=== PATIENT | male | born 1955 | race Caucasian/White ===

== ENCOUNTER → 2016-02-24 | Outpatient (CLI) | payer BC ==
[~2016-02-24] MED LIST: ACCUNEB 0.1.25 MG/1 INH; ALBUTEROL0.09 MG/A2 INH; AUGMENTIN XR 101 TE1 PO; AVPAK AZITHROM250 M1 PO; CLARITIN10 MG PO; COMBIVENT1 ARO IH; DUONEB 3 MG/3 ML3 M1 NEB; Duoneb 3ML 3 MG/3 ML INH; FISH OIL 10001000 MG PO; LISINOPRIL/HYDR1 TA1 PO; MEDROL DOSEPAK4 MG PO; NICODERM C14 MG/241 T; PREDNISONE10 MG PO; PRILOSEC20 MG PO; VENTOLIN H0.09 MG/AC INH; ZESTRIL20 MG PO; ZITHROMAX Z PA250 MG PO; [UNRECOGNIZED DRUG - OTHER] PO
== END | disposition home or self-care (01) ==
LOC: RAD 17:16
DX: J44.9 Chronic obstructive pulmonary disease, unspecified (principal); R50.9 Fever, unspecified; R05 Cough; J98.4 Other disorders of lung

== ENCOUNTER 2016-07-14 08:23 | Inpatient (IN) | payer BC ==
[~2016-07-14] VITALS: Ht 172.7 cm; Wt 91.3 kg
[2016-07-14 08:28] VITALS: BP 190/110
[2016-07-14] MEDS ORDERED: LEVOFLOXACIN500 MG PO (08:33)
[2016-07-14] MEDS ORDERED: PREDNISONE20 M1 PO (08:33)
[2016-07-14] MEDS ORDERED: SYMBICORT1 AE1 INH (08:34)
[2016-07-14] MEDS ORDERED: AMLODIPINE BES2.5 MG PO (08:34)
[2016-07-14 08:52] LABS: BASO % 0.2 % (0.0-1.0); EOS % 0.2 % (1.0-4.0); HEMATOCRIT 39.3 % (42.0-52.0); HEMOGLOBIN 13.4 g/dl (14.0-18.0); IG # 0.1 10*3/uL (0.0-0.1); LYMPH # 1.1 10*3/uL (1.3-4.4); MEAN CELL VOLUME 101.3 fl (80.0-94.0); MEAN CORPUSCULAR HGB 34.5 pg (27.0-31.0); MEAN CORPUSCULAR HGB CONC 34.1 g/dl (33.0-37.0); MEAN PLATELET VOLUME 8.7 fl (9.6-12.3); MONO # 0.6 10*3/uL (0.1-1.0); MONO % 10.8 % (3.0-9.0); NEUT # 4.1 10*3/uL (2.3-7.9); NEUT % 69.9 % (47.0-73.0); PLATELET COUNT AUTOMATED 199 10*3/uL (130-400); RED BLOOD COUNT 3.88 10*6/uL (4.50-5.90); RED CELL DISTRI WIDTH 13.4 % (0-14.5); WHITE BLOOD COUNT 5.8 10*3/uL (4.8-10.8)
[2016-07-14 09:00] LABS: INTERNATIONAL NORM RATIO 0.9 (2.0-3.5); PROTHROMBIN TIME 9.4 SECONDS (9.0-12.4)
[2016-07-14 09:07] LABS: ALBUMIN 3.3 gm/dl (3.1-4.5); ALKALINE PHOSPHATASE 54 U/L (45-117); BILIRUBIN, TOTAL 0.3 mg/dl (0.2-1.0); BUN 17 mg/dl (7-24); CARBON DIOXIDE 30 mmol/L (21-32); CHLORIDE 101 mmol/L (98-107); CKMB 4.1 ng/ml (0.5-3.6); CPK 185 U/L (39-308); EST GLOM FILT AFRICAN AMERICAN > 60 ml/min; GLUCOSE 116 mg/dL (65-99); MAGNESIUM 1.7 mg/dL (1.5-2.1); POTASSIUM 3.8 mmol/L (3.5-5.1); SGOT/AST 77 IU/L (3-35); SGPT/ALT 86 U/L (12-78); SODIUM 139 mmol/L (136-145); TOTAL PROTEIN 6.9 gm/dL (6.4-8.2)
[2016-07-14 09:08] LABS: TROPONIN I < 0.015 ng/ml (<0.045)
[2016-07-14 11:25] VITALS: BP 180/98
[2016-07-14 12:00] VITALS: BP 134/84
[2016-07-14 16:00] VITALS: BP 163/97
[2016-07-14 20:00] VITALS: BP 172/88
[2016-07-14 22:00] VITALS: BP 172/88
[2016-07-15] VITALS (7 sets, daily range): BP systolic 152–180; BP diastolic 82–104
[2016-07-15 07:27] LABS: BASO % 0.2 % (0.0-1.0); HEMATOCRIT 36.8 % (42.0-52.0); HEMOGLOBIN 12.5 g/dl (14.0-18.0); LYMPH # 0.6 10*3/uL (1.3-4.4); LYMPH % 8.8 % (27.0-41.0); MEAN CELL VOLUME 101.7 fl (80.0-94.0); MEAN CORPUSCULAR HGB 34.5 pg (27.0-31.0); MEAN PLATELET VOLUME 8.9 fl (9.6-12.3); MONO # 0.3 10*3/uL (0.1-1.0); MONO % 4.8 % (3.0-9.0); NEUT # 5.5 10*3/uL (2.3-7.9); NEUT % 85.6 % (47.0-73.0); PLATELET COUNT AUTOMATED 203 10*3/uL (130-400); RED BLOOD COUNT 3.62 10*6/uL (4.50-5.90); RED CELL DISTRI WIDTH 13.2 % (0-14.5); WHITE BLOOD COUNT 6.5 10*3/uL (4.8-10.8)
[2016-07-15 07:55] LABS: ALBUMIN 2.9 gm/dl (3.1-4.5); ALKALINE PHOSPHATASE 48 U/L (45-117); BILIRUBIN, TOTAL 0.3 mg/dl (0.2-1.0); BUN 14 mg/dl (7-24); CARBON DIOXIDE 32 mmol/L (21-32); CHLORIDE 102 mmol/L (98-107); CHOLESTEROL 187 mg/dL (<200); EST GLOM FILT AFRICAN AMERICAN > 60 ml/min; FREE T4 0.86 ng/dl (0.76-1.46); GLUCOSE 162 mg/dL (65-99); SGOT/AST 41 IU/L (3-35); SGPT/ALT 73 U/L (12-78); SODIUM 140 mmol/L (136-145); TOTAL PROTEIN 6.3 gm/dL (6.4-8.2); TRIGLYCERIDES 48 mg/dl (<150); VLDL CHOLESTEROL 10 mg/dL (6-40)
[2016-07-15 08:04] LABS: HEMOGLOBIN A1c 5.8 % (4.8-5.6)
[2016-07-15 08:05] LABS: HDL CHOLESTEROL 150 mg/dl (40-60); LDL CHOLESTEROL 27 mg/dL (9-159); THYROID STIM HORMONE (HS) 0.266 uIU/ml (0.358-4.75)
[2016-07-15 08:42] LABS: VITAMIN D, 25-HYDROXY 28.1 ng/mL (30-100)
[2016-07-15 08:43] LABS: FOLIC ACID 10.36 ng/mL (>5.38)
[2016-07-16] VITALS (8 sets, daily range): BP systolic 140–162; BP diastolic 70–98
[2016-07-16 06:00] LABS: ALBUMIN 2.9 gm/dl (3.1-4.5); ALKALINE PHOSPHATASE 47 U/L (45-117); BILIRUBIN, TOTAL 0.3 mg/dl (0.2-1.0); BUN 16 mg/dl (7-24); CARBON DIOXIDE 33 mmol/L (21-32); CHLORIDE 100 mmol/L (98-107); EST GLOM FILT AFRICAN AMERICAN > 60 ml/min; GLUCOSE 127 mg/dL (65-99); HEMATOCRIT 36.4 % (42.0-52.0); HEMOGLOBIN 12.1 g/dl (14.0-18.0); IG # 0.1 10*3/uL (0.0-0.1); LYMPH # 1.1 10*3/uL (1.3-4.4); LYMPH % 13.3 % (27.0-41.0); MEAN CELL VOLUME 101.7 fl (80.0-94.0); MEAN CORPUSCULAR HGB 33.8 pg (27.0-31.0); MEAN CORPUSCULAR HGB CONC 33.2 g/dl (33.0-37.0); MEAN PLATELET VOLUME 9.2 fl (9.6-12.3); MONO # 0.6 10*3/uL (0.1-1.0); MONO % 7.6 % (3.0-9.0); NEUT # 6.4 10*3/uL (2.3-7.9); NEUT % 78.2 % (47.0-73.0); PLATELET COUNT AUTOMATED 219 10*3/uL (130-400); POTASSIUM 3.6 mmol/L (3.5-5.1); RED BLOOD COUNT 3.58 10*6/uL (4.50-5.90); RED CELL DISTRI WIDTH 13.2 % (0-14.5); SGOT/AST 32 IU/L (3-35); SGPT/ALT 65 U/L (12-78); SODIUM 140 mmol/L (136-145); WHITE BLOOD COUNT 8.1 10*3/uL (4.8-10.8)
[2016-07-17] VITALS: BP 150/80
[2016-07-17 08:00] VITALS: BP 148/86
[2016-07-17] MEDS ORDERED: PREDNISONE10 MG PO (09:49)
[2016-07-17] MEDS ORDERED: D-1000 185 MG-11 TAB PO (09:49)
[2016-07-17] MEDS ORDERED: HYDROCHLOROTH12.5 M2 PO (09:49)
[2016-07-17 12:00] VITALS: BP 148/90
== END 2016-07-17 12:45 | disposition home or self-care (01) | DRG 871 ==
LOC: ED 08:23 → EDHOLD 09:46 → 4E 10:10
PROVIDERS: Emergency Medicine; Internal Medicine Hospice and Palliative Medicine
DX: A41.9 Sepsis, unspecified organism (principal); J18.9 Pneumonia, unspecified organism; K76.0 Fatty (change of) liver, not elsewhere classified; J44.1 Chronic obstructive pulmonary disease with (acute) exacerbation; J44.0 Chronic obstructive pulmonary disease with (acute) lower respiratory infection; E44.1 Mild protein-calorie malnutrition; I16.0 Hypertensive urgency; Z96.641 Presence of right artificial hip joint; K21.9 Gastro-esophageal reflux disease without esophagitis; F17.200 Nicotine dependence, unspecified, uncomplicated; D72.810 Lymphocytopenia; D64.9 Anemia, unspecified; R73.9 Hyperglycemia, unspecified; R74.0 Nonspecific elevation of levels of transaminase and lactic acid dehydrogenase [LDH]; E66.09 Other obesity due to excess calories; E55.9 Vitamin D deficiency, unspecified; J30.2 Other seasonal allergic rhinitis; Z83.6 Family history of other diseases of the respiratory system; Z87.01 Personal history of pneumonia (recurrent); Z71.6 Tobacco abuse counseling; Z83.3 Family history of diabetes mellitus; Z80.9 Family history of malignant neoplasm, unspecified; Z91.018 Allergy to other foods; Z68.29 Body mass index [BMI] 29.0-29.9, adult

== ENCOUNTER → 2017-09-09 | Outpatient (CLI) | payer BC ==
[~2017-09-09] MED LIST changes: +AMLODIPINE BES2.5 MG PO; +D-1000 185 MG-11 TAB PO; +HYDROCHLOROTH12.5 M2 PO; +LEVOFLOXACIN500 MG PO; +PREDNISONE20 M1 PO; +SYMBICORT1 AE1 INH
[2017-09-09 07:44] LABS: HEMATOCRIT 35.6 % (42.0-52.0); HEMOGLOBIN 12.1 g/dl (14.0-18.0); MEAN CELL VOLUME 111.9 fl (80.0-94.0); MEAN CORPUSCULAR HGB 38.1 pg (27.0-31.0); MEAN PLATELET VOLUME 8.8 fl (9.6-12.3); RED BLOOD COUNT 3.18 10*6/uL (4.50-5.90); RED CELL DISTRI WIDTH 13.3 % (0-14.5); WHITE BLOOD COUNT 5.7 10*3/uL (4.8-10.8)
[2017-09-09 08:05] LABS: ALBUMIN 3.4 gm/dl (3.1-4.5); BUN 17 mg/dl (7-24); CHLORIDE 103 mmol/L (98-107); CHOLESTEROL 194 mg/dL (<200); CREATININE 1.08 mg/dL (0.70-1.30); POTASSIUM 4.4 mmol/L (3.5-5.1); SGOT/AST 82 IU/L (3-35); SGPT/ALT 67 U/L (12-78); SODIUM 139 mmol/L (136-145); TRIGLYCERIDES 65 mg/dl (<150); VLDL CHOLESTEROL 13 mg/dL (6-40)
[2017-09-09 08:09] LABS: ALKALINE PHOSPHATASE 65 U/L (45-117); HDL CHOLESTEROL 118 mg/dl (40-60); LDL CHOLESTEROL 63 mg/dL (9-159); TOTAL PROTEIN 6.5 gm/dL (6.4-8.2)
== END | disposition home or self-care (01) ==
LOC: LAB 07:15
PROVIDERS: Internal Medicine
DX: Z12.5 Encounter for screening for malignant neoplasm of prostate (principal); E78.00 Pure hypercholesterolemia, unspecified; R53.83 Other fatigue; E55.9 Vitamin D deficiency, unspecified

== ENCOUNTER → 2017-11-03 | Outpatient (CLI) | payer BC ==
[~2017-11-03] MED LIST changes: +CARAFATE1 GM PO; +IBU-200200 MG PO; +PROTONIX40 MG PO
[2017-11-03 11:22] LABS: HEMATOCRIT 34.1 % (42.0-52.0); HEMOGLOBIN 12.1 g/dl (14.0-18.0); MEAN CELL VOLUME 107.6 fl (80.0-94.0); MEAN CORPUSCULAR HGB 38.2 pg (27.0-31.0); MEAN CORPUSCULAR HGB CONC 35.5 g/dl (33.0-37.0); MEAN PLATELET VOLUME 8.6 fl (9.6-12.3); PLATELET COUNT AUTOMATED 132 10*3/uL (130-400); RED BLOOD COUNT 3.17 10*6/uL (4.50-5.90); RED CELL DISTRI WIDTH 12.8 % (0-14.5); WHITE BLOOD COUNT 4.6 10*3/uL (4.8-10.8)
[2017-11-03 12:06] LABS: PLATELET SUFFICIENCY NORMAL (NORMAL); TOTAL CELLS COUNTED 100 #CELLS
[2017-11-15 16:06] LABS: GTG BAND RESOLUTION ACHIEVED 400 (.)
== END | disposition home or self-care (01) ==
LOC: RESCLI 02:53
PROVIDERS: Student in an Organized Health Care Education/Training Program
DX: J44.9 Chronic obstructive pulmonary disease, unspecified (principal); R79.89 Other specified abnormal findings of blood chemistry; I10 Essential (primary) hypertension; D50.9 Iron deficiency anemia, unspecified; G47.33 Obstructive sleep apnea (adult) (pediatric); R10.13 Epigastric pain; K21.9 Gastro-esophageal reflux disease without esophagitis; R00.0 Tachycardia, unspecified; Z71.6 Tobacco abuse counseling; Z98.890 Other specified postprocedural states

== ENCOUNTER → 2017-11-11 | Outpatient (CLI) | payer BC | END | disposition home or self-care (01) | LOC: CT 09:40 | DX: J44.9 Chronic obstructive pulmonary disease, unspecified (principal); K76.0 Fatty (change of) liver, not elsewhere classified; K57.30 Diverticulosis of large intestine without perforation or abscess without bleeding; F17.200 Nicotine dependence, unspecified, uncomplicated ==

== ENCOUNTER 2017-12-01 22:21 | Emergency (ER) | payer BC ==
[~2017-12-01] VITALS: Wt 81.6 kg
[~2017-12-01 22:21] MED LIST changes: -CARAFATE1 GM PO; -IBU-200200 MG PO; -PROTONIX40 MG PO
[2018-01-01] MEDS ORDERED: IBU-200200 MG PO (15:59)
[2018-01-05] MEDS ORDERED: PROTONIX40 MG PO (12:57)
[2018-01-05] MEDS ORDERED: CARAFATE1 GM PO (13:02)
== END 2017-12-01 23:56 | disposition short-term general hospital (02) ==
LOC: ED 22:21
DX: J93.0 Spontaneous tension pneumothorax (principal); J44.1 Chronic obstructive pulmonary disease with (acute) exacerbation; I10 Essential (primary) hypertension; K21.9 Gastro-esophageal reflux disease without esophagitis; R73.9 Hyperglycemia, unspecified; F10.10 Alcohol abuse, uncomplicated; Z91.018 Allergy to other foods; Z79.899 Other long term (current) drug therapy

== ENCOUNTER → 2018-01-05 | Day surgery (SDC) | payer BC ==
[~2018-01-05] VITALS: Ht 172.7 cm; Wt 80.7 kg
[~2018-01-05] MED LIST changes: +CARAFATE1 GM PO; +IBU-200200 MG PO; +PROTONIX40 MG PO
--- NOTE | ~2018-01-05 | O ---
[place], [place] OPERATIVE NOTE NAME: CHARMAINE JAVIER UNIT #: [id number] ROOM: DOCTOR: TORI REYNARANGEL BIRTHDATE: [birth year] DOS: 01/05/2018 HISTORY OF PRESENT ILLNESS: A 62-year-old patient who was presented with chief complaint of anemia, undergoing investigation. The patient guaiac positive. PAST MEDICAL HISTORY: Associated hypertension, COPD, degenerative joint disease. PAST SURGICAL HISTORY: Right total knee, back pain, podiatric surgeries. MEDICATIONS: Ibuprofen 600 mg few times a day at least. PROCEDURE: Today's procedure part of investigation is panendoscopy and colonoscopy. PREMEDICATION: Propofol. SCOPE: Olympus forward-viewing gastroscope Q10 video. REPORT: After putting the patient in left lateral position and application of lubricant to the scope, the scope was introduced. Thereafter, under direct visualization, advanced through the length of esophagus without difficulty. Gastric pouch was entered. Gastritis of moderate to severe degree noticed. Antral biopsy obtained. Duodenum was entered. Severe duodenitis seen. Duodenal ulceration about centimeter and half in its diameter was noticed in the left lateral position. Photographed. The scope was withdrawn back to the antrum. Antral biopsy obtained. The patient was gradually extubated after GI reflection of the scope reveals cardia to be benign. IMPRESSION: Gastritis, duodenitis. PLAN AND DISCUSSION: The patient has been on 600 mg of ibuprofen q.i.d., I am going to start this patient on Protonix 40 mg 1 daily and advised him to abstain from intake of ibuprofen routinely and substituting periodically with Tylenol. We are going to also for the first 2 weeks, I am going to keep him on sucralfate tablets one tablet before meals and at bedtime make it for the first 4 weeks, 1 tablet a day 2 hours before meals and at bedtime. Meanwhile, we are going to proceed with colonoscopic evaluation of this patient in search of etiology for anemia. The patient has presented with a chief complaint of anemia and undergone investigation. The patient's endoscopy has been reported already. PROCEDURE: Today's procedure part of investigation is colonoscopy. PREMEDICATION: Propofol. SCOPE: Olympus forward-viewing colonoscope 10L video. REPORT: After putting the patient in left lateral position and application of [place], [place] OPERATIVE NOTE NAME: CHARMAINE JAVIER UNIT #: [id number] ROOM: DOCTOR: TORI REYNA,RANGEL BIRTHDATE: [birth year] lubricant to the scope, the scope was introduced. Thereafter, under direct visualization, I advanced through the length of colon without difficulty. Diverticulosis was appreciated. Three sessile polypoid lesion in sigmoid colon with the snare was polypectomized. Base of the cecum explored, appendiceal orifice identified, and ileocecal valve was defined. Air was suctioned out. The patient was extubated, tolerated the procedure well. IMPRESSION: Diverticulosis and three sessile polypoid lesion in sigmoid colon, status post snare polypectomy. PLAN AND DISCUSSION: The patient advised to abstain from excessive intake of ibuprofen and ulcer therapy in progress. Followup routinely with you in office and p.r.n. visit with us in GI Clinic. RANGEL VALLE MD CM:OPRECORD:OPERATIVE NOTE [id number] RANGEL VALLE MD 01/05/18 1243 interface
[2018-01-05 10:00] VITALS: BP 176/90
[2018-01-05 12:15] VITALS: BP 138/93
[2018-01-05 12:30] VITALS: BP 143/83
[2018-01-05 12:45] VITALS: BP 139/88
== END | disposition home or self-care (01) ==
LOC: SDC 01-02 12:30
DX: K63.5 Polyp of colon (principal); K57.30 Diverticulosis of large intestine without perforation or abscess without bleeding; K29.70 Gastritis, unspecified, without bleeding; K29.80 Duodenitis without bleeding; K21.9 Gastro-esophageal reflux disease without esophagitis; I10 Essential (primary) hypertension; J44.9 Chronic obstructive pulmonary disease, unspecified; F17.210 Nicotine dependence, cigarettes, uncomplicated; M19.90 Unspecified osteoarthritis, unspecified site; Z91.018 Allergy to other foods; Z79.1 Long term (current) use of non-steroidal anti-inflammatories (NSAID); Z98.890 Other specified postprocedural states; Z72.89 Other problems related to lifestyle; Z87.01 Personal history of pneumonia (recurrent); Z96.641 Presence of right artificial hip joint

== ENCOUNTER → 2018-01-16 | Outpatient (CLI) | payer BC | END | disposition home or self-care (01) | LOC: RAD 08:41 | DX: J44.9 Chronic obstructive pulmonary disease, unspecified (principal); S22.41XD Multiple fractures of ribs, right side, subsequent encounter for fracture with routine healing; I10 Essential (primary) hypertension; F17.200 Nicotine dependence, unspecified, uncomplicated; X58.XXXD Exposure to other specified factors, subsequent encounter ==

== ENCOUNTER → 2018-02-06 | Outpatient (CLI) | payer BC ==
[2018-02-06 19:45] LABS: HEMATOCRIT 39.9 % (42.0-52.0); HEMOGLOBIN 13.9 g/dl (14.0-18.0); MEAN CELL VOLUME 109.9 fl (80.0-94.0); MEAN CORPUSCULAR HGB 38.3 pg (27.0-31.0); MEAN CORPUSCULAR HGB CONC 34.8 g/dl (33.0-37.0); MEAN PLATELET VOLUME 9.9 fl (9.6-12.3); PLATELET COUNT AUTOMATED 122 10*3/uL (130-400); RED BLOOD COUNT 3.63 10*6/uL (4.50-5.90); RED CELL DISTRI WIDTH 15.7 % (0-14.5); RETICULOCYTE % 1.52 % (0.50-2.50); WHITE BLOOD COUNT 4.9 10*3/uL (4.8-10.8)
[2018-02-06 20:02] LABS: ALBUMIN 3.4 gm/dl (3.1-4.5); ALKALINE PHOSPHATASE 66 U/L (45-117); BUN 12 mg/dl (7-24); CHLORIDE 99 mmol/L (98-107); CHOLESTEROL 214 mg/dL (<200); CREATININE 1.19 mg/dL (0.70-1.30); HDL CHOLESTEROL 148 mg/dl (40-60); IRON 96 ug/dL (65-175); LDL CHOLESTEROL 55 mg/dL (9-159); POTASSIUM 3.6 mmol/L (3.5-5.1); SGOT/AST 46 IU/L (3-35); SGPT/ALT 34 U/L (12-78); SODIUM 136 mmol/L (136-145); TOTAL IRON BINDING CAPACITY 281 ug/dl (250-450); TOTAL PROTEIN 6.6 gm/dL (6.4-8.2); TRIGLYCERIDES 56 mg/dl (<150); VLDL CHOLESTEROL 11 mg/dL (6-40)
[2018-02-06 20:24] LABS: FERRITIN 307.3 ng/mL (22.0-322.0); VITAMIN D, 25-HYDROXY 36.4 ng/mL (30-100)
[2018-02-06 20:25] LABS: BASOPHILS 1 % (0-1); TOTAL CELLS COUNTED 71 #CELLS
[2018-02-06 20:26] LABS: PLATELET SUFFICIENCY LOW (NORMAL)
== END | disposition home or self-care (01) ==
LOC: LAB 18:39
PROVIDERS: Internal Medicine
DX: E78.00 Pure hypercholesterolemia, unspecified (principal); E55.9 Vitamin D deficiency, unspecified; D50.0 Iron deficiency anemia secondary to blood loss (chronic); K29.90 Gastroduodenitis, unspecified, without bleeding

== ENCOUNTER → 2018-02-23 | Outpatient (CLI) | payer BC | END | disposition home or self-care (01) | LOC: RESCLI 08:52 | DX: Z00.00 Encounter for general adult medical examination without abnormal findings (principal); D75.9 Disease of blood and blood-forming organs, unspecified; I10 Essential (primary) hypertension; J44.9 Chronic obstructive pulmonary disease, unspecified; F17.200 Nicotine dependence, unspecified, uncomplicated; Z79.899 Other long term (current) drug therapy; Z71.6 Tobacco abuse counseling; Z91.018 Allergy to other foods ==

== ENCOUNTER → 2018-06-06 | Outpatient (CLI) | payer BC ==
[~2018-06-06] MED LIST changes: +BREO ELLIPTA 21 EACH INH; +CYMBALTA20 M1 PO; +INCRUSE ELLI62.5 MCG INH; +LISINOPRIL-HCT1 EACH PO; +NATURE'S BLEND F1 MG PO; +NORVASC5 MG PO; +PANTOPRAZOLE SO40 MG PO; +SEPTDS PO
== END | disposition home or self-care (01) ==
LOC: CT 12:43
DX: R91.1 Solitary pulmonary nodule (principal); I70.90 Unspecified atherosclerosis; J43.9 Emphysema, unspecified; Z91.81 History of falling

== ENCOUNTER → 2018-07-06 | Outpatient (CLI) | payer BC | END | disposition home or self-care (01) | LOC: CT 08:32 | DX: K76.0 Fatty (change of) liver, not elsewhere classified (principal); K57.90 Diverticulosis of intestine, part unspecified, without perforation or abscess without bleeding ==

== ENCOUNTER 2018-08-02 01:14 | Inpatient (IN) | payer BC ==
[2018-08-02] VITALS (16 sets, daily range): BP systolic 86–154; BP diastolic 49–92
[~2018-08-02] VITALS: Ht 172.7 cm; Wt 72.8 kg
--- NOTE | ~2018-08-02 | EKG ---
[place], [place] ELECTROCARDIOGRAM REPORT NAME: CHARMAINE JAVIER UNIT #: [id number] ROOM: 506 DOCTOR: CHRISTIANA DRAFT REPORT BIRTHDATE: [birth year] [facility] Test Date: 2018-08-02 Test Time: 03:54:08 Pat Name: CHARMAINE JAVIER Department: Room: 506 Gender: M Night Custodian: Vivian Johnson : 1955 Requested By: LIBRADO MADSEN Order Number: [id number] Reading MD: Jeancarlos Andrade MD Measurements Intervals [place] Rate: 92 P: 82 PA: 151 QRS: 83 QRSD: 95 T: 71 QT: 407 QTc: 504 Interpretive Statements Sinus rhythm Consider left atrial enlargement Consider right ventricular hypertrophy Prolonged QT interval Electronically Signed On 08-02-2018 15:50:36 PDT by Jeancarlos Andrade MD CM:EKGRPT:ELECTROCARDIOGRAM REPORT [id number] LIBRADO HENRY DRAFT REPORT LIBRADO MADSEN DO
--- NOTE | ~2018-08-02 | EKG ---
[place], [place] ELECTROCARDIOGRAM REPORT NAME: CHARMAINE JAVIER UNIT #: [id number] ROOM: 506 DOCTOR: CHRISTIANA DRAFT REPORT BIRTHDATE: [birth year] [facility] Test Date: 2018-08-02 Test Time: 01:18:40 Pat Name: CHARMAINE JAVIER Department: Room: 506 Gender: M Design Director: Vivian Johnson : 1955 Requested By: LIBRADO MADSEN Order Number: [id number] Reading MD: Jeancarlos Andrade MD Measurements Intervals [place] Rate: 86 P: 73 [place]: 137 QRS: 79 QRSD: 100 T: 71 QT: 413 QTc: 494 Interpretive Statements Sinus rhythm RSR' in V1 or V2, right VCD or RVH Borderline prolonged QT interval Baseline wander in lead(s) V1 Electronically Signed On 08-02-2018 15:47:52 PDT by Jeancarlos Andrade MD CM:EKGRPT:ELECTROCARDIOGRAM REPORT [id number] LIBRADO HENRY DRAFT REPORT LIBRADO MADSEN DO
--- NOTE | ~2018-08-02 | EKG ---
[place], [place] ELECTROCARDIOGRAM REPORT NAME: CHARMAINE JAVIER UNIT #: [id number] ROOM: 506 DOCTOR: CHRISTIANA DRAFT REPORT BIRTHDATE: [birth year] [facility] Test Date: 2018-08-02 Test Time: 07:17:56 Pat Name: CHARMAINE JAVIER Department: Room: 506 Gender: M Auricular Detoxification Specialist: : 1955 Requested By: LIBRADO MADSEN Order Number: [id number] Reading MD: Jeancarlos Andrade MD Measurements Intervals [place] Rate: 81 P: 79 [place]: 141 QRS: 79 QRSD: 92 T: 69 QT: 428 QTc: 497 Interpretive Statements Sinus rhythm Atrial premature complex Borderline prolonged QT interval Baseline wander in lead(s) V3 Electronically Signed On 08-02-2018 15:51:17 PDT by Jeancarlos Andrade MD CM:EKGRPT:ELECTROCARDIOGRAM REPORT [id number] 1551 LIBRADO HENRY DRAFT REPORT LIBRADO MADSEN DO
[~2018-08-02 01:14] MED LIST changes: -BREO ELLIPTA 21 EACH INH; -CYMBALTA20 M1 PO; -INCRUSE ELLI62.5 MCG INH; -LISINOPRIL-HCT1 EACH PO; -NATURE'S BLEND F1 MG PO; -NORVASC5 MG PO; -PANTOPRAZOLE SO40 MG PO; -SEPTDS PO
--- NOTE | 2018-08-02 01:45 | NUR ---
PROMPTED PATIENT FOR URINE AT THIS TIME. PER PATIENT DOES NOT NEED TO URINATE. URINAL AT THE BEDSIDE.
[2018-08-02 01:52] LABS: HEMATOCRIT 32.4 % (42.0-52.0); HEMOGLOBIN 11.5 g/dl (14.0-18.0); MEAN CELL VOLUME 114.9 fl (80.0-94.0); MEAN CORPUSCULAR HGB 40.8 pg (27.0-31.0); MEAN CORPUSCULAR HGB CONC 35.5 g/dl (33.0-37.0); MEAN PLATELET VOLUME 8.9 fl (9.6-12.3); PLATELET COUNT AUTOMATED 156 10*3/uL (130-400); RED BLOOD COUNT 2.82 10*6/uL (4.50-5.90); WHITE BLOOD COUNT 4.6 10*3/uL (4.8-10.8)
[2018-08-02 02:03] LABS: ACT PARTIAL THROMBO TIME 24.5 SECONDS (20.0-32.1); INTERNATIONAL NORM RATIO 0.9 (2.0-3.5)
[2018-08-02 02:09] LABS: ALBUMIN 2.8 gm/dl (3.1-4.5); ALKALINE PHOSPHATASE 65 U/L (45-117); BUN 14 mg/dl (7-24); CHLORIDE 99 mmol/L (98-107); POTASSIUM 3.6 mmol/L (3.5-5.1); SGOT/AST 73 IU/L (3-35); SGPT/ALT 51 U/L (12-78); SODIUM 139 mmol/L (136-145); TOTAL PROTEIN 5.5 gm/dL (6.4-8.2)
[2018-08-02 02:10] LABS: TROPONIN I < 0.015 ng/ml (<0.045)
--- NOTE | 2018-08-02 02:12 | NUR ---
DR MADSEN NOTIFIED OF CRITICAL LACTIC ACID 6.1
[2018-08-02 02:19] LABS: ATYPICAL LYMPHS 1 % (0-0); PLATELET SUFFICIENCY NORMAL (NORMAL); TOTAL CELLS COUNTED 100 #CELLS
--- NOTE | 2018-08-02 04:24 | NUR ---
INFROMED OF [facility] LA OF 4.0. STATED OK.
--- NOTE | 2018-08-02 04:45 | NUR ---
A 63, admitted to , under the services of JACKSON Sosa DO with a diagnosis of SYNCOPE, SEVERE SEPSIS, PNEUMONIA. Chief complaint is LOW BLOOD PRESSURE. Patient arrived via ambulatory from ER. Monitor applied. Initial assessment completed. Vital signs taken and recorded. JACKSON SOSA DO notified of admission to the unit. Orders received. See assessment for past medical history, medications and allergies. Patient and/or family oriented to unit. [facility] visitation policy reviewed. Clothing/patient valuable form completed. DANILO SHELDON
[2018-08-02] MEDS ORDERED: LISINOPRIL-HCT1 EACH PO (04:49)
[2018-08-02] MEDS ORDERED: CYMBALTA20 M1 PO (04:50)
[2018-08-02] MEDS ORDERED: NORVASC5 MG PO (04:50)
[2018-08-02] MEDS ORDERED: BREO ELLIPTA 21 EACH INH (04:51)
[2018-08-02] MEDS ORDERED: INCRUSE ELLI62.5 MCG INH (04:53)
--- NOTE | 2018-08-02 04:54 | NUR ---
DR. JENNIFER GUAJARDO NOITIFIED OF MED REC [facility].
--- NOTE | 2018-08-02 06:46 | NUR ---
IV started left arm with #20 angiocath after 1 attempt. The IV site was prepped with Chloraprep. Heparin lock attached. Sterile dressing applied. Patient tolerated precedure well. Procedure performed according to [facility] policy & procedure. ANGELA STOKES
--- NOTE | 2018-08-02 07:29 | NUR ---
SPOKE WITH DR. YEE REGARDING BING PLACED IN EMERGENCY ROOM AND WOUND CARE ORDERS NEEDING OBTAINED. SHE STATED SHE WILL PUT SOME IN WHEN SHE HAS A MOMENT.
--- NOTE | 2018-08-02 07:30 | NUR ---
Patient resting quietly with no c/o discomfort. Respirations easy and regular. Vital signs stable. No overt distress. TALA SEGAL
--- NOTE | 2018-08-02 07:38 | NUR ---
CHARMAINE JAVIER [id number] Please refer to the physician's history and physical for past medical history, comorbid conditions, and allergies. Diagnosis: SEVERE SEPSIS SYNCOPE PNA Daniel Score: 22,LOW OR NO RISK WOUND DESCRIPTIONS: Wound Number: 1 Location of the wound: back of head Type of wound: laceration Size: 4.0cm x 0.1cm x <0.1cm Tunneling: none Undermining: none Sinus Tract: none Presence of Exudate: Serosanguineous Amount: Light Color: Red Odor: None Periwound Skin Appearance: Normal Wound edges: approximated with 2 benjamin Pain (associated with wound): tender to touch How does patient state this happened? pt stated his blood pressure bottom out and hit his head Wound Number: 2 Location of the wound: back of head Type of wound: laceration Size: 0.3cm x 0.1cm x <0.1cm Tunneling: none Undermining: none Sinus Tract: none Presence of Exudate: Serosanguineous Amount: Light Color: Red Periwound Skin Appearance: Normal Wound edges: approximated with 1 staple Pain (associated with wound): tender to touch How does patient state this happened? pt stated his blood pressure bottom out and hit his head Surface the patient is resting on: Position Pro SKIN PREVENTION RECOMMENDATION: 1. Pressure redistribution support surface as appropriate 2. Elevate heels 3. Remove boots/TEDS every shift and reapply 4. Head of bed 30 degrees as tolerated 5. Assess nutrition and hydration 6. Manage moisture 7. Avoid the use of containment devices while in bed 8. Use absorptive products on surfaces limit layers of linens on bed 9. Turn and reposition every 1-2 hours in bed and every 1 hour in chair as tolerated 10. Weight shifts every 15 minutes while up in chair 11. Offloading with pillows or device to keep heels elevated off bed 12. Monitor skin at least every shift 13. Inspect under medical devices twice a day WOUND TREATMENT RECOMMENDATIONS: May remove benjamin in 7-10 days. keep area clean and dry.
--- NOTE | 2018-08-02 07:43 | NUR ---
PHYSICAL THERAPY Nursing screen received. Chart review complete. Recommend normal daily mobility with nursing prn. If difficulties with mobilty arise, please order PT. Thank you. Jojo Alvarenga,PT
--- NOTE | 2018-08-02 08:00 | NUR ---
Dr. Avalos notified of wound care recommendations.
[2018-08-02 09:03] LABS: BILIRUBIN NEGATIVE (NEGATIVE); BLOOD NEGATIVE (NEGATIVE); CLARITY SL CLOUDY (CLEAR); COLOR YELLOW (YELLOW); GLUCOSE NEGATIVE (NEGATIVE); KETONE NEGATIVE (NEGATIVE); LEUKO ESTERASE NEGATIVE (NEGATIVE); NITRITE NEGATIVE (NEGATIVE); SPECIFIC GRAVITY 1.015 (1.005-1.030); UROBILINOGEN 0.2 E.U./dl (0.2-1.0)
[2018-08-02 09:10] LABS: URINE AMPHETAMINES < 1000 (1000ng/ml); URINE BARBITURATES < 200 (200ng/ml); URINE BENZODIAZEPINES < 200 (200ng/ml); URINE CANNABINOIDS (THC) < 50 (50ng/ml); URINE COCAINE < 300 (300ng/ml); URINE METHADONE < 300 (300ng/ml); URINE OPIATES < 300 (300ng/ml)
[2018-08-02 09:12] LABS: BACTERIA 1+; RBC 0-2 rbc/hpf (0-2)
[2018-08-02 09:14] LABS: URINE PHENCYCLIDINE < 25 (25ng/ml)
--- NOTE | 2018-08-02 09:23 | NUR ---
SPEECH PATHOLOGY Nursing screen completed. There are no reports of acute communication or swallowing difficulty therefore speech services are not indicated at this time. This dept. will be available should future needs arise. YOLIE AYOUB MS [facility] MACHINE OPERATOR
--- NOTE | 2018-08-02 12:08 | NUR ---
DR YARBROUGH IN TO ASSESS.
[2018-08-03] VITALS: BP 140/87
[2018-08-03 06:33] LABS: HEMATOCRIT 27.6 % (42.0-52.0); HEMOGLOBIN 9.9 g/dl (14.0-18.0); MEAN CELL VOLUME 111.3 fl (80.0-94.0); MEAN CORPUSCULAR HGB 39.9 pg (27.0-31.0); MEAN CORPUSCULAR HGB CONC 35.9 g/dl (33.0-37.0); MEAN PLATELET VOLUME 9.1 fl (9.6-12.3); PLATELET COUNT AUTOMATED 114 10*3/uL (130-400); RED BLOOD COUNT 2.48 10*6/uL (4.50-5.90); RED CELL DISTRI WIDTH 13.9 % (0-14.5); WHITE BLOOD COUNT 3.3 10*3/uL (4.8-10.8)
[2018-08-03 07:04] LABS: ALBUMIN 2.6 gm/dl (3.1-4.5); ALKALINE PHOSPHATASE 55 U/L (45-117); BUN 13 mg/dl (7-24); CHLORIDE 104 mmol/L (98-107); PHOSPHOROUS 3.3 mg/dL (2.5-4.9); POTASSIUM 3.5 mmol/L (3.5-5.1); SGPT/ALT 42 U/L (12-78); SODIUM 138 mmol/L (136-145); TOTAL PROTEIN 5.2 gm/dL (6.4-8.2)
[2018-08-03 07:06] LABS: CREATININE 0.75 mg/dL (0.70-1.30); SGOT/AST 43 IU/L (3-35)
[2018-08-03 07:16] LABS: ACT PARTIAL THROMBO TIME 26.2 SECONDS (20.0-32.1); INTERNATIONAL NORM RATIO 0.9 (2.0-3.5)
[2018-08-03 07:20] LABS: TOTAL CELLS COUNTED 100 #CELLS
[2018-08-03 07:21] LABS: PLATELET SUFFICIENCY LOW (NORMAL); SCHISTOCYTES FEW
--- NOTE | 2018-08-03 07:30 | NUR ---
Patient resting quietly with no c/o discomfort. Respirations easy and regular. Vital signs stable. No overt distress. TALA SEGAL
[2018-08-03 07:52] LABS: VITAMIN D, 25-HYDROXY 47.7 ng/mL (30-100)
[2018-08-03 08:00] VITALS: BP 124/78
--- NOTE | 2018-08-03 08:03 | NUR ---
24 HR chart check completed.
--- NOTE | 2018-08-03 08:36 | NUR ---
MEDICATED WITH IV ATIVAN ORDERED FOR NOTED TREMORS AND ANXIETY. PT CLAIMS HE DID NOT SLEEP AT ALL LAST NIGHT AND IS A DAILY ETOH CONSUMER.
--- NOTE | 2018-08-03 10:55 | NUR ---
KAILASH MADE AWARE OF +UC.
--- NOTE | 2018-08-03 11:02 | NUR ---
MEDICATION EFFECTIVE FOR DTS.
[2018-08-03 12:00] VITALS: BP 142/87
--- NOTE | 2018-08-03 13:41 | NUR ---
Director Of Operations For Therapy in to talk to patient. Patient states lives at HOME with . There are FEW steps in the home. Physician: [facility] Pharmacy: [facility] services: NONE Patient's level of ADLs: INDEPENDENT Patient has working utilities: YES DME: NONE Follow-up physician's appointment after d/c: WILL BE MADE BY HOSPITALIST NURSE DIRECTOR ON DISCHARGE. Does patient want to access PORTAL?: NO Discharge plan PT STATE HE LIVES AT HOME WITH HIS AND IS INDEPENDENT IN HIS CARE. DENIES ANY NEEDS WHEN DISCHARGED. WILL CONTINUE TO FOLLOW. WILL HAVE A RIDE HOME. TIFF HENDRICKS
--- NOTE | 2018-08-03 15:38 | NUR ---
Nursing screen received. Chart review completed. Encourage daily ADls with nursing care. If difficulties with ADls or safety then refer to OT. Thank yoU. Sravanthi Mae OTR/L
[2018-08-03 16:00] VITALS: BP 132/77
--- NOTE | 2018-08-03 16:00 | NUR ---
Patient resting quietly with no c/o discomfort. Respirations easy and regular. Vital signs stable. No overt distress. TALA SEGAL
[2018-08-03 20:00] VITALS: BP 134/85
--- NOTE | 2018-08-03 22:14 | NUR ---
PATIENT MEDICATED WITH 2MG IV ATIVAN FOR COMPLAINTS OF ANXIETY AND SHAKING. WILL CONTINUE TO MONITOR. CALL LIGHT IN REACH.
[2018-08-04] VITALS: BP 141/89
--- NOTE | 2018-08-04 07:15 | NUR ---
Patient resting quietly with no c/o discomfort. Respirations easy and regular. Vital signs stable. No overt distress. TALA SEGAL 24 HR chart check completed.
--- NOTE | 2018-08-04 07:34 | NUR ---
DR ARREDONDO NOTIFIED OF +UC.
[2018-08-04 08:00] VITALS: BP 129/89
[2018-08-04] MEDS ORDERED: PANTOPRAZOLE SO40 MG PO (11:17)
[2018-08-04] MEDS ORDERED: NATURE'S BLEND F1 MG PO (11:17)
[2018-08-04] MEDS ORDERED: SEPTDS PO (11:19)
[2018-08-04 12:00] VITALS: BP 150/86
--- NOTE | 2018-08-04 12:50 | NUR ---
LEAVING IN CARE OF , AMBULATORY.
== END 2018-08-04 12:50 | disposition home or self-care (01) | DRG 315 ==
LOC: ED 01:14 → 5E 02:44 → EDHOLD 02:44 → 5E 02:56
PROVIDERS: Internal Medicine; Student in an Organized Health Care Education/Training Program; ADMIT Internal Medicine
DX: I95.9 Hypotension, unspecified (principal); E87.2 Acidosis; I50.22 Chronic systolic (congestive) heart failure; E44.0 Moderate protein-calorie malnutrition; N30.00 Acute cystitis without hematuria; E86.0 Dehydration; F10.920 Alcohol use, unspecified with intoxication, uncomplicated; J44.9 Chronic obstructive pulmonary disease, unspecified; I10 Essential (primary) hypertension; K21.9 Gastro-esophageal reflux disease without esophagitis; E66.9 Obesity, unspecified; Z96.641 Presence of right artificial hip joint; F17.210 Nicotine dependence, cigarettes, uncomplicated; S01.91XA Laceration without foreign body of unspecified part of head, initial encounter; E83.42 Hypomagnesemia; D72.819 Decreased white blood cell count, unspecified; D53.9 Nutritional anemia, unspecified; R74.0 Nonspecific elevation of levels of transaminase and lactic acid dehydrogenase [LDH]; I11.0 Hypertensive heart disease with heart failure; J30.2 Other seasonal allergic rhinitis; K76.0 Fatty (change of) liver, not elsewhere classified; F32.9 Major depressive disorder, single episode, unspecified; B96.89 Other specified bacterial agents as the cause of diseases classified elsewhere; R73.9 Hyperglycemia, unspecified; W18.39XA Other fall on same level, initial encounter; Z87.01 Personal history of pneumonia (recurrent); Z80.6 Family history of leukemia; Z83.6 Family history of other diseases of the respiratory system; Z91.018 Allergy to other foods; Z79.899 Other long term (current) drug therapy; Z71.6 Tobacco abuse counseling; Z68.24 Body mass index [BMI] 24.0-24.9, adult; Y93.89 Activity, other specified; Y92.89 Other specified places as the place of occurrence of the external cause; Y99.8 Other external cause status

== ENCOUNTER → 2018-08-24 | Outpatient (CLI) | payer BC ==
[~2018-08-24] MED LIST changes: +BREO ELLIPTA 21 EACH INH; +CYMBALTA20 M1 PO; +INCRUSE ELLI62.5 MCG INH; +LISINOPRIL-HCT1 EACH PO; +NATURE'S BLEND F1 MG PO; +NORVASC5 MG PO; +PANTOPRAZOLE SO40 MG PO; +SEPTDS PO
[2018-08-24 09:20] LABS: HEMOGLOBIN 11.9 g/dl (14.0-18.0); MEAN CELL VOLUME 113.3 fl (80.0-94.0); MEAN CORPUSCULAR HGB 38.5 pg (27.0-31.0); MEAN PLATELET VOLUME 8.8 fl (9.6-12.3); PLATELET COUNT AUTOMATED 197 10*3/uL (130-400); RED BLOOD COUNT 3.09 10*6/uL (4.50-5.90); RED CELL DISTRI WIDTH 13.6 % (0-14.5); WHITE BLOOD COUNT 5.9 10*3/uL (4.8-10.8)
[2018-08-24 09:51] LABS: BASOPHILS 2 % (0-1); PLATELET SUFFICIENCY NORMAL (NORMAL); TOTAL CELLS COUNTED 100 #CELLS
== END | disposition home or self-care (01) ==
LOC: LAB 08:54
PROVIDERS: Internal Medicine
DX: D69.6 Thrombocytopenia, unspecified (principal)

== ENCOUNTER → 2018-09-26 | Outpatient (CLI) | payer BC ==
[2018-09-26 09:36] LABS: HEMATOCRIT 37.3 % (42.0-52.0); HEMOGLOBIN 13.2 g/dl (14.0-18.0); MEAN CELL VOLUME 108.7 fl (80.0-94.0); MEAN CORPUSCULAR HGB 38.5 pg (27.0-31.0); MEAN CORPUSCULAR HGB CONC 35.4 g/dl (33.0-37.0); MEAN PLATELET VOLUME 9.3 fl (9.6-12.3); PLATELET COUNT AUTOMATED 128 10*3/uL (130-400); RED BLOOD COUNT 3.43 10*6/uL (4.50-5.90); RED CELL DISTRI WIDTH 12.9 % (0-14.5); WHITE BLOOD COUNT 6.1 10*3/uL (4.8-10.8)
[2018-09-26 09:56] LABS: PLATELET SUFFICIENCY LOW (NORMAL); TOTAL CELLS COUNTED 100 #CELLS
== END | disposition home or self-care (01) ==
LOC: LAB 09:20
PROVIDERS: Internal Medicine
DX: D69.6 Thrombocytopenia, unspecified (principal)

== ENCOUNTER → 2018-10-26 | Outpatient (CLI) | payer BC ==
[2018-10-26 09:26] LABS: BASO # 0.1 10*3/uL (0.0-0.1); BASO % 1.7 % (0.0-1.0); EOS # 0.1 10*3/uL (0.0-0.4); EOS % 1.9 % (1.0-4.0); HEMATOCRIT 36.1 % (42.0-52.0); HEMOGLOBIN 12.9 g/dl (14.0-18.0); MEAN CORPUSCULAR HGB 37.2 pg (27.0-31.0); MEAN CORPUSCULAR HGB CONC 35.7 g/dl (33.0-37.0); MEAN PLATELET VOLUME 9.3 fl (9.6-12.3); MONO # 0.6 10*3/uL (0.1-1.0); MONO % 10.2 % (3.0-9.0); NEUT # 3.5 10*3/uL (2.3-7.9); NEUT % 54.9 % (47.0-73.0); PLATELET COUNT AUTOMATED 151 10*3/uL (130-400); RED BLOOD COUNT 3.47 10*6/uL (4.50-5.90); RED CELL DISTRI WIDTH 14.4 % (0-14.5); WHITE BLOOD COUNT 6.3 10*3/uL (4.8-10.8)
== END | disposition home or self-care (01) ==
LOC: LAB 08:34
PROVIDERS: Internal Medicine
DX: D69.6 Thrombocytopenia, unspecified (principal)

== ENCOUNTER → 2018-11-23 | Outpatient (CLI) | payer BC ==
--- NOTE | ~2018-11-23 | EKG ---
[place], [place] ELECTROCARDIOGRAM REPORT NAME: CHARMAINE JAVIER UNIT #: [id number] ROOM: DOCTOR: EPIPHANY DRAFT REPORT BIRTHDATE: [birth year] [facility] Test Date: 2018-11-23 Test Time: 16:25:50 Pat Name: CHARMAINE JAVIER Department: Room: Gender: M Supervisor Webbing: : 1955 Requested By: GUSATVO GILLIAM Order Number: [id number] Reading MD: Grayson Solorio MD Measurements Intervals [place] Rate: 107 P: 81 [place]: 118 QRS: 78 QRSD: 81 T: 63 QT: 344 QTc: 459 Interpretive Statements Sinus tachycardia Multiple premature complexes, vent \T\ supraven Baseline wander in lead(s) V4 Compared to ECG 08/02/2018 07:17:56 Sinus rhythm no longer present Atrial premature complex(es) no longer present Electronically Signed On 11-27-2018 7:12:05 PDT by Grayson Solorio MD CM:EKGRPT:ELECTROCARDIOGRAM REPORT [id number] GUSTAVO VILLEDA DRAFT REPORT GUSTAVO GILLIAM MD
== END | disposition home or self-care (01) ==
LOC: RESCLI 00:32
DX: R00.0 Tachycardia, unspecified (principal); I10 Essential (primary) hypertension; J44.9 Chronic obstructive pulmonary disease, unspecified; G47.33 Obstructive sleep apnea (adult) (pediatric); F10.10 Alcohol abuse, uncomplicated; R63.4 Abnormal weight loss; Z72.0 Tobacco use; Z79.899 Other long term (current) drug therapy

== ENCOUNTER → 2018-12-06 | Outpatient (CLI) | payer BC | END | disposition home or self-care (01) | LOC: RESCLI 01:57 | DX: I10 Essential (primary) hypertension (principal); R00.0 Tachycardia, unspecified; J44.9 Chronic obstructive pulmonary disease, unspecified; G47.33 Obstructive sleep apnea (adult) (pediatric); F10.10 Alcohol abuse, uncomplicated; R63.4 Abnormal weight loss; Z72.0 Tobacco use; Z79.899 Other long term (current) drug therapy ==

== ENCOUNTER → 2021-04-09 | Outpatient (CLI) | payer MEDICARE ==
[~2021-04-09] MED LIST changes: +COREG6.25 MG PO; +MUCINEX1200 M1 PO; +OSTERA TABLET1 EACH PO; +Percocet 325 MG1 TAB PO; +VITAMIN B-121000 MC2 PO
== END | disposition home or self-care (01) ==
LOC: RAD 09:19
PROVIDERS: ATTEND Orthopaedic Surgery
DX: S32.402A Unspecified fracture of left acetabulum, initial encounter for closed fracture (principal); X58.XXXA Exposure to other specified factors, initial encounter; Y93.89 Activity, other specified; Y92.89 Other specified places as the place of occurrence of the external cause; Y99.8 Other external cause status

== ENCOUNTER → 2021-04-23 | Outpatient (CLI) | payer MEDICARE | END | disposition home or self-care (01) | LOC: ORTHO 02:23 | PROVIDERS: ATTEND Orthopaedic Surgery | DX: S32.435D Nondisplaced fracture of anterior column [iliopubic] of left acetabulum, subsequent encounter for fracture with routine healing (principal); X58.XXXD Exposure to other specified factors, subsequent encounter ==

== ENCOUNTER → 2021-06-02 | Outpatient (CLI) | payer MEDICARE | END | disposition home or self-care (01) | LOC: ORTHO 01:50 | PROVIDERS: ATTEND Orthopaedic Surgery | DX: S32.435D Nondisplaced fracture of anterior column [iliopubic] of left acetabulum, subsequent encounter for fracture with routine healing (principal); X58.XXXD Exposure to other specified factors, subsequent encounter ==

== ENCOUNTER → 2021-06-23 | Outpatient (CLI) | payer MEDICARE | END | disposition home or self-care (01) | LOC: ORTHO 01:43 | PROVIDERS: ATTEND Orthopaedic Surgery | DX: M79.641 Pain in right hand (principal); M79.642 Pain in left hand ==

== ENCOUNTER → 2021-07-14 | Outpatient (CLI) | payer MEDICARE | END | disposition home or self-care (01) | LOC: ORTHO 01:49 | PROVIDERS: ATTEND Orthopaedic Surgery | DX: S32.435D Nondisplaced fracture of anterior column [iliopubic] of left acetabulum, subsequent encounter for fracture with routine healing (principal); X58.XXXD Exposure to other specified factors, subsequent encounter ==

== ENCOUNTER 2021-12-14 10:36 | Inpatient (IN) | payer MEDICARE ==
[~2021-12-14] VITALS: Ht 172.7 cm; Wt 77.3 kg
[2021-12-14] VITALS (7 sets, daily range): BP systolic 113–147; BP diastolic 74–112
[2021-12-14 11:44] LABS: HEMATOCRIT 38.3 % (42.0-52.0); MEAN CELL VOLUME 108.8 fl (80.0-94.0); MEAN CORPUSCULAR HGB 35.8 pg (27.0-31.0); MEAN CORPUSCULAR HGB CONC 32.9 g/dl (33.0-37.0); MEAN PLATELET VOLUME 9.5 fl (9.6-12.3); PLATELET COUNT AUTOMATED 198 10*3/uL (130-400); RED BLOOD COUNT 3.52 10*6/uL (4.50-5.90); RED CELL DISTRI WIDTH 13.8 % (0-14.5); WHITE BLOOD COUNT 5.9 10*3/uL (4.8-10.8)
[2021-12-14 11:47] LABS: MANUAL DIFF REFLEX YES
[2021-12-14 11:57] LABS: ACT PARTIAL THROMBO TIME 27.8 SECONDS (20.0-32.1); INTERNATIONAL NORM RATIO 1.1 (2.0-3.5)
[2021-12-14 12:03] LABS: BASOPHILS 2 % (0-1); TOTAL CELLS COUNTED 100 #CELLS
[2021-12-14 12:04] LABS: BURR CELLS FEW; PLATELET SUFFICIENCY NORMAL (NORMAL); POLYCHROMASIA SLIGHT
[2021-12-14 12:07] LABS: ALKALINE PHOSPHATASE 47 U/L (45-117); BUN 22 mg/dl (7-24); CHLORIDE 102 mmol/L (98-107); CREATININE 0.78 mg/dL (0.70-1.30); POTASSIUM 4.7 mmol/L (3.5-5.1); SGOT/AST 14 IU/L (3-35); SGPT/ALT 18 U/L (12-78); SODIUM 140 mmol/L (136-145); TOTAL PROTEIN 6.7 gm/dL (6.4-8.2)
[2021-12-15] VITALS (9 sets, daily range): BP systolic 106–149; BP diastolic 85–97
[2021-12-15 07:07] LABS: HEMATOCRIT 34.8 % (42.0-52.0); MEAN CELL VOLUME 108.4 fl (80.0-94.0); MEAN CORPUSCULAR HGB 35.8 pg (27.0-31.0); MEAN PLATELET VOLUME 9.6 fl (9.6-12.3); PLATELET COUNT AUTOMATED 163 10*3/uL (130-400); RED BLOOD COUNT 3.21 10*6/uL (4.50-5.90); RED CELL DISTRI WIDTH 13.5 % (0-14.5); WHITE BLOOD COUNT 4.4 10*3/uL (4.8-10.8)
[2021-12-15 07:08] LABS: MANUAL DIFF REFLEX YES
[2021-12-15 07:30] LABS: ALKALINE PHOSPHATASE 49 U/L (45-117); BUN 21 mg/dl (7-24); CHLORIDE 101 mmol/L (98-107); CHOLESTEROL 124 mg/dL (<200); CREATININE 0.77 mg/dL (0.70-1.30); FREE T4 1.12 ng/dl (0.76-1.46); LDL CHOLESTEROL 50 mg/dL (9-159); POTASSIUM 4.2 mmol/L (3.5-5.1); SGOT/AST 13 IU/L (3-35); SGPT/ALT 18 U/L (12-78); SODIUM 138 mmol/L (136-145); TOTAL PROTEIN 5.9 gm/dL (6.4-8.2); TRIGLYCERIDES 54 mg/dl (<150)
[2021-12-15 07:32] LABS: BASOPHILS 3 % (0-1); OVALOCYTES FEW; PLATELET SUFFICIENCY NORMAL (NORMAL); POLYCHROMASIA SLIGHT; TOTAL CELLS COUNTED 100 #CELLS; TOXIC GRANULATION SLIGHT
[2021-12-15 08:20] LABS: VITAMIN D, 25-HYDROXY 96.6 ng/mL (30-100)
[2021-12-16] VITALS (10 sets, daily range): BP systolic 130–147; BP diastolic 76–101
[2021-12-16 07:03] LABS: BASO # 0.1 10*3/uL (0.0-0.1); BASO % 1.2 % (0.0-1.0); EOS # 0.1 10*3/uL (0.0-0.4); EOS % 2.9 % (1.0-4.0); HEMATOCRIT 36.3 % (42.0-52.0); LYMPH # 1.2 10*3/uL (1.3-4.4); LYMPH % 25.3 % (27.0-41.0); MEAN CELL VOLUME 105.8 fl (80.0-94.0); MEAN CORPUSCULAR HGB 35.6 pg (27.0-31.0); MEAN CORPUSCULAR HGB CONC 33.6 g/dl (33.0-37.0); MEAN PLATELET VOLUME 9.1 fl (9.6-12.3); MONO # 0.5 10*3/uL (0.1-1.0); MONO % 10.7 % (3.0-9.0); NEUT # 2.9 10*3/uL (2.3-7.9); NEUT % 59.5 % (47.0-73.0); PLATELET COUNT AUTOMATED 192 10*3/uL (130-400); RED BLOOD COUNT 3.43 10*6/uL (4.50-5.90); RED CELL DISTRI WIDTH 13.7 % (0-14.5); WHITE BLOOD COUNT 4.9 10*3/uL (4.8-10.8)
[2021-12-16 07:18] LABS: BUN 13 mg/dl (7-24); CHLORIDE 102 mmol/L (98-107); CREATININE 0.62 mg/dL (0.70-1.30); POTASSIUM 4.1 mmol/L (3.5-5.1); SODIUM 139 mmol/L (136-145)
[2021-12-17] VITALS: BP 145/95
[2021-12-17 06:50] LABS: BASO # 0.1 10*3/uL (0.0-0.1); BASO % 0.9 % (0.0-1.0); EOS # 0.1 10*3/uL (0.0-0.4); EOS % 2.4 % (1.0-4.0); HEMATOCRIT 35.5 % (42.0-52.0); LYMPH # 1.3 10*3/uL (1.3-4.4); LYMPH % 23.6 % (27.0-41.0); MEAN CELL VOLUME 106.9 fl (80.0-94.0); MEAN CORPUSCULAR HGB 35.8 pg (27.0-31.0); MEAN CORPUSCULAR HGB CONC 33.5 g/dl (33.0-37.0); MEAN PLATELET VOLUME 9.5 fl (9.6-12.3); MONO # 0.5 10*3/uL (0.1-1.0); MONO % 9.5 % (3.0-9.0); NEUT # 3.4 10*3/uL (2.3-7.9); NEUT % 63.2 % (47.0-73.0); PLATELET COUNT AUTOMATED 176 10*3/uL (130-400); RED BLOOD COUNT 3.32 10*6/uL (4.50-5.90); RED CELL DISTRI WIDTH 13.6 % (0-14.5); WHITE BLOOD COUNT 5.4 10*3/uL (4.8-10.8)
[2021-12-17 07:09] LABS: BUN 14 mg/dl (7-24); CHLORIDE 99 mmol/L (98-107); CREATININE 0.71 mg/dL (0.70-1.30); POTASSIUM 4.5 mmol/L (3.5-5.1); SODIUM 138 mmol/L (136-145)
[2021-12-17 08:00] VITALS: BP 158/92
[2021-12-17 12:00] VITALS: BP 152/86
[2021-12-17] MEDS ORDERED: XARE20MG PO (14:11)
[2021-12-17] MEDS ORDERED: METOPROLOL SUC100 M1 PO (14:11)
[2021-12-17] MEDS ORDERED: CARDIZEM CD180 MG PO (14:11)
[2021-12-17 16:00] VITALS: BP 150/74
== END 2021-12-17 17:40 | disposition home or self-care (01) | DRG 309 ==
LOC: ED 10:36 → 5E 12:26 → EDHOLD 12:26 → 5E 15:29
PROVIDERS: Family Medicine; Internal Medicine; ADMIT Student in an Organized Health Care Education/Training Program; ATTEND Student in an Organized Health Care Education/Training Program
PROC: 5A09357 Assistance with Respiratory Ventilation, Less than 24 Consecutive Hours, Continuous Positive Airway Pressure (ICD-10-PCS; principal; 2021-12-15)
DX: I48.91 Unspecified atrial fibrillation (principal); E44.0 Moderate protein-calorie malnutrition; I50.20 Unspecified systolic (congestive) heart failure; J96.11 Chronic respiratory failure with hypoxia; J96.12 Chronic respiratory failure with hypercapnia; Z96.641 Presence of right artificial hip joint; F32.9 Major depressive disorder, single episode, unspecified; J44.9 Chronic obstructive pulmonary disease, unspecified; G47.33 Obstructive sleep apnea (adult) (pediatric); K21.9 Gastro-esophageal reflux disease without esophagitis; D53.9 Nutritional anemia, unspecified; J30.1 Allergic rhinitis due to pollen; K76.0 Fatty (change of) liver, not elsewhere classified; F17.200 Nicotine dependence, unspecified, uncomplicated; E55.9 Vitamin D deficiency, unspecified; F32.A Depression, unspecified; I48.92 Unspecified atrial flutter; I11.0 Hypertensive heart disease with heart failure; Z91.048 Other nonmedicinal substance allergy status; Z89.422 Acquired absence of other left toe(s); Z80.6 Family history of leukemia; Z83.6 Family history of other diseases of the respiratory system; Z68.25 Body mass index [BMI] 25.0-25.9, adult

== ENCOUNTER → 2021-12-30 | Day surgery (SDC) | payer MEDICARE ==
[~2021-12-30] VITALS: Ht 172.7 cm; Wt 79.4 kg
[~2021-12-30] MED LIST changes: +CARDIZEM CD180 MG PO; +METOPROLOL SUC100 M1 PO; +XARE20MG PO
[2021-12-30 08:57] VITALS: BP 159/97
[2021-12-30 10:03] VITALS: BP 100/48
[2021-12-30 10:15] VITALS: BP 103/66
[2021-12-30 10:33] VITALS: BP 110/63
== END | disposition home or self-care (01) ==
LOC: SDC 12-29 08:00
PROVIDERS: ATTEND Internal Medicine Cardiovascular Disease
DX: I48.19 Other persistent atrial fibrillation (principal); I11.0 Hypertensive heart disease with heart failure; I50.9 Heart failure, unspecified; K21.9 Gastro-esophageal reflux disease without esophagitis; J44.9 Chronic obstructive pulmonary disease, unspecified; F32.9 Major depressive disorder, single episode, unspecified; G47.33 Obstructive sleep apnea (adult) (pediatric); F17.210 Nicotine dependence, cigarettes, uncomplicated; Z98.890 Other specified postprocedural states; Z96.641 Presence of right artificial hip joint; Z79.899 Other long term (current) drug therapy

== ENCOUNTER → 2022-01-03 | Outpatient (CLI) | payer MEDICARE | END | disposition home or self-care (01) | LOC: RESCLI 08:58 | PROVIDERS: ATTEND Internal Medicine | DX: S32.9XXA Fracture of unspecified parts of lumbosacral spine and pelvis, initial encounter for closed fracture (principal); I10 Essential (primary) hypertension; J44.9 Chronic obstructive pulmonary disease, unspecified; G47.33 Obstructive sleep apnea (adult) (pediatric); E78.00 Pure hypercholesterolemia, unspecified; K21.9 Gastro-esophageal reflux disease without esophagitis; I48.91 Unspecified atrial fibrillation; E83.42 Hypomagnesemia; F17.210 Nicotine dependence, cigarettes, uncomplicated; F17.200 Nicotine dependence, unspecified, uncomplicated; Z98.890 Other specified postprocedural states; Z79.01 Long term (current) use of anticoagulants; Z91.02 Food additives allergy status; Z79.899 Other long term (current) drug therapy; X58.XXXA Exposure to other specified factors, initial encounter; Y93.89 Activity, other specified; Y92.89 Other specified places as the place of occurrence of the external cause; Y99.8 Other external cause status ==

== ENCOUNTER → 2022-02-04 | Day surgery (SDC) | payer MEDICARE ==
[~2022-02-04] VITALS: Ht 172.7 cm; Wt 77.1 kg
[2022-02-04 08:30] VITALS: BP 162/84
[2022-02-04 10:20] VITALS: BP 113/59
[2022-02-04 10:35] VITALS: BP 124/69
[2022-02-04 10:50] VITALS: BP 134/81
== END | disposition home or self-care (01) ==
LOC: SDC 02-01 12:30
PROVIDERS: ATTEND Internal Medicine Cardiovascular Disease
DX: I48.19 Other persistent atrial fibrillation (principal); J44.9 Chronic obstructive pulmonary disease, unspecified; K21.9 Gastro-esophageal reflux disease without esophagitis; F32.9 Major depressive disorder, single episode, unspecified; I11.0 Hypertensive heart disease with heart failure; I50.9 Heart failure, unspecified; F17.210 Nicotine dependence, cigarettes, uncomplicated; G47.33 Obstructive sleep apnea (adult) (pediatric); Z79.899 Other long term (current) drug therapy

== ENCOUNTER 2022-02-16 17:39 | Emergency (ER) | payer MEDICARE ==
[~2022-02-16] VITALS: Ht 172.7 cm; Wt 77.1 kg
[2022-02-16] MEDS ORDERED: MULTAQ400 MG PO (18:02)
[2022-02-16 18:44] LABS: BASO # 0.1 10*3/uL (0.0-0.1); BASO % 0.9 % (0.0-1.0); EOS # 0.1 10*3/uL (0.0-0.4); EOS % 1.3 % (1.0-4.0); HEMATOCRIT 33.2 % (42.0-52.0); LYMPH % 12.1 % (27.0-41.0); MEAN CELL VOLUME 104.1 fl (80.0-94.0); MEAN CORPUSCULAR HGB 33.2 pg (27.0-31.0); MEAN CORPUSCULAR HGB CONC 31.9 g/dl (33.0-37.0); MEAN PLATELET VOLUME 9.2 fl (9.6-12.3); MONO # 0.5 10*3/uL (0.1-1.0); MONO % 6.5 % (3.0-9.0); NEUT # 6.5 10*3/uL (2.3-7.9); NEUT % 78.8 % (47.0-73.0); PLATELET COUNT AUTOMATED 174 10*3/uL (130-400); RED BLOOD COUNT 3.19 10*6/uL (4.50-5.90); RED CELL DISTRI WIDTH 13.7 % (0-14.5); WHITE BLOOD COUNT 8.2 10*3/uL (4.8-10.8)
[2022-02-16 19:02] LABS: ALKALINE PHOSPHATASE 55 U/L (46-116); BUN 24 mg/dl (9-23); CHLORIDE 95 mmol/L (98-107); CREATININE 0.89 mg/dL (0.70-1.30); POTASSIUM 4.4 mmol/L (3.4-5.1); SGPT/ALT 7 U/L (10-49)
[2022-02-16 19:06] LABS: INTERNATIONAL NORM RATIO 1.2 (2.0-3.5)
[2022-02-16] MEDS ORDERED: VIBRAMYCIN100 MG PO (20:10)
[2022-02-16] MEDS ORDERED: PREDNISONE20 M1 PO (20:10)
== END 2022-02-16 20:11 | disposition home or self-care (01) ==
LOC: ED 17:39
PROVIDERS: Physician Assistant
DX: R60.0 Localized edema (principal); J44.1 Chronic obstructive pulmonary disease with (acute) exacerbation; Z91.018 Allergy to other foods; Z87.891 Personal history of nicotine dependence; Z98.890 Other specified postprocedural states

== ENCOUNTER → 2022-03-29 | Outpatient (CLI) | payer MEDICARE ==
[~2022-03-29] MED LIST changes: +MULTAQ400 MG PO; +VIBRAMYCIN100 MG PO
[2022-03-29 07:47] LABS: BUN 32 mg/dl (9-23); CHLORIDE 92 mmol/L (98-107); POTASSIUM 4.6 mmol/L (3.4-5.1)
== END | disposition home or self-care (01) ==
LOC: LAB 07:04
PROVIDERS: ATTEND Internal Medicine
DX: I50.43 Acute on chronic combined systolic (congestive) and diastolic (congestive) heart failure (principal)

== ENCOUNTER → 2022-07-12 | Outpatient (CLI) | payer MEDICARE | END | disposition home or self-care (01) | LOC: RESCLI 01:42 | PROVIDERS: ATTEND Internal Medicine | DX: I11.0 Hypertensive heart disease with heart failure (principal); I50.9 Heart failure, unspecified; J44.1 Chronic obstructive pulmonary disease with (acute) exacerbation; G47.33 Obstructive sleep apnea (adult) (pediatric); K21.9 Gastro-esophageal reflux disease without esophagitis; F17.210 Nicotine dependence, cigarettes, uncomplicated; S32.435D Nondisplaced fracture of anterior column [iliopubic] of left acetabulum, subsequent encounter for fracture with routine healing; M19.041 Primary osteoarthritis, right hand; M19.042 Primary osteoarthritis, left hand; M65.332 Trigger finger, left middle finger; M65.331 Trigger finger, right middle finger; I48.91 Unspecified atrial fibrillation; E83.42 Hypomagnesemia; R91.1 Solitary pulmonary nodule; I48.92 Unspecified atrial flutter; Z91.018 Allergy to other foods; Z98.890 Other specified postprocedural states; Z79.899 Other long term (current) drug therapy; X58.XXXD Exposure to other specified factors, subsequent encounter ==

== ENCOUNTER → 2022-09-30 | Outpatient (CLI) | payer MEDICARE | END | disposition home or self-care (01) | LOC: RAD 09:35 | PROVIDERS: ATTEND Internal Medicine | DX: J44.9 Chronic obstructive pulmonary disease, unspecified (principal); R13.10 Dysphagia, unspecified ==

== ENCOUNTER 2023-01-29 08:28 | Emergency (ER) | payer MEDICARE ==
[~2023-01-29] VITALS: Ht 177.8 cm; Wt 65.8 kg
[2023-01-29] VITALS (9 sets, daily range): BP systolic 84–133; BP diastolic 43–108
[2023-01-29 09:04] LABS: MANUAL DIFF REFLEX YES; MEAN CELL VOLUME 97.2 fl (80.0-94.0); MEAN CORPUSCULAR HGB 28.8 pg (27.0-31.0); MEAN CORPUSCULAR HGB CONC 29.7 g/dl (33.0-37.0); MEAN PLATELET VOLUME 9.7 fl (9.6-12.3); PLATELET COUNT AUTOMATED 428 10*3/uL (130-400); RED BLOOD COUNT 1.77 10*6/uL (4.50-5.90); RED CELL DISTRI WIDTH 18.6 % (0-14.5); WHITE BLOOD COUNT 13.8 10*3/uL (4.8-10.8)
[2023-01-29 09:06] LABS: HEMATOCRIT 17.2 % (42.0-52.0)
[2023-01-29 09:26] LABS: ALKALINE PHOSPHATASE 51 U/L (46-116); BUN 50 mg/dl (9-23); CHLORIDE 91 mmol/L (98-107); LIPASE 35 U/L (12-53); POTASSIUM 4.9 mmol/L (3.4-5.1); SGPT/ALT 26 U/L (5-49); TOTAL CELLS COUNTED 100 #CELLS; TOTAL PROTEIN 5.8 gm/dL (6.0-8.0)
[2023-01-29 09:27] LABS: ETHYL ALCOHOL < 3.0 mg/dl (<3); OVALOCYTES FEW; PLATELET SUFFICIENCY HIGH (NORMAL); POLYCHROMASIA SLIGHT; ROULEAUX SLIGHT
[2023-01-29 13:25] LABS: HEMATOCRIT 23.6 % (42.0-52.0)
== END 2023-01-29 15:10 | disposition short-term general hospital (02) ==
LOC: ED 08:28
PROVIDERS: Family Medicine
DX: R57.0 Cardiogenic shock (principal); D62 Acute posthemorrhagic anemia; D68.318 Other hemorrhagic disorder due to intrinsic circulating anticoagulants, antibodies, or inhibitors; J44.1 Chronic obstructive pulmonary disease with (acute) exacerbation; K92.2 Gastrointestinal hemorrhage, unspecified; K21.9 Gastro-esophageal reflux disease without esophagitis; F32.A Depression, unspecified; I11.0 Hypertensive heart disease with heart failure; I50.9 Heart failure, unspecified; Z93.0 Tracheostomy status; Z91.018 Allergy to other foods; Z98.890 Other specified postprocedural states; F17.200 Nicotine dependence, unspecified, uncomplicated; Z79.899 Other long term (current) drug therapy; Z20.822 Contact with and (suspected) exposure to COVID-19

== ENCOUNTER → 2023-02-11 | Outpatient (CLI) | payer MEDICARE ==
[2023-02-11 10:50] LABS: BASO % 0.2 % (0.0-1.0); EOS # 0.1 10*3/uL (0.0-0.4); HEMATOCRIT 23.7 % (42.0-52.0); LYMPH # 0.3 10*3/uL (1.3-4.4); LYMPH % 3.3 % (27.0-41.0); MEAN CELL VOLUME 100.4 fl (80.0-94.0); MEAN CORPUSCULAR HGB 30.5 pg (27.0-31.0); MEAN CORPUSCULAR HGB CONC 30.4 g/dl (33.0-37.0); MEAN PLATELET VOLUME 8.8 fl (9.6-12.3); MONO # 1.3 10*3/uL (0.1-1.0); MONO % 14.8 % (3.0-9.0); NEUT # 6.9 10*3/uL (2.3-7.9); NEUT % 80.1 % (47.0-73.0); PLATELET COUNT AUTOMATED 202 10*3/uL (130-400); RED BLOOD COUNT 2.36 10*6/uL (4.50-5.90); RED CELL DISTRI WIDTH 15.9 % (0-14.5); WHITE BLOOD COUNT 8.6 10*3/uL (4.8-10.8)
== END | disposition home or self-care (01) ==
LOC: LAB 10:24
PROVIDERS: ATTEND Obstetrics & Gynecology
DX: K92.2 Gastrointestinal hemorrhage, unspecified (principal)

== ENCOUNTER → 2023-02-18 | Outpatient (CLI) | payer MEDICARE ==
[2023-02-18 10:41] LABS: BASO % 0.7 % (0.0-1.0); EOS # 0.2 10*3/uL (0.0-0.4); EOS % 2.8 % (1.0-4.0); HEMATOCRIT 24.1 % (42.0-52.0); LYMPH # 0.3 10*3/uL (1.3-4.4); LYMPH % 5.3 % (27.0-41.0); MEAN CELL VOLUME 99.2 fl (80.0-94.0); MEAN CORPUSCULAR HGB CONC 30.3 g/dl (33.0-37.0); MEAN PLATELET VOLUME 8.9 fl (9.6-12.3); MONO # 0.7 10*3/uL (0.1-1.0); MONO % 11.3 % (3.0-9.0); NEUT # 4.8 10*3/uL (2.3-7.9); NEUT % 79.4 % (47.0-73.0); PLATELET COUNT AUTOMATED 226 10*3/uL (130-400); RED BLOOD COUNT 2.43 10*6/uL (4.50-5.90); RED CELL DISTRI WIDTH 15.8 % (0-14.5)
== END | disposition home or self-care (01) ==
LOC: LAB 10:12
PROVIDERS: ATTEND Physician Assistant Medical
DX: C32.1 Malignant neoplasm of supraglottis (principal); R11.0 Nausea

== ENCOUNTER → 2023-05-10 | Outpatient (CLI) | payer MEDICARE ==
[2023-05-10 15:18] LABS: BASO # 0.1 10*3/uL (0.0-0.1); BASO % 0.6 % (0.0-1.0); EOS # 0.9 10*3/uL (0.0-0.4); HEMATOCRIT 26.1 % (42.0-52.0); LYMPH # 0.8 10*3/uL (1.3-4.4); LYMPH % 8.5 % (27.0-41.0); MEAN CELL VOLUME 90.9 fl (80.0-94.0); MEAN CORPUSCULAR HGB 26.8 pg (27.0-31.0); MEAN CORPUSCULAR HGB CONC 29.5 g/dl (33.0-37.0); MONO # 1.2 10*3/uL (0.1-1.0); MONO % 12.9 % (3.0-9.0); NEUT % 67.7 % (47.0-73.0); PLATELET COUNT AUTOMATED 241 10*3/uL (130-400); RED BLOOD COUNT 2.87 10*6/uL (4.50-5.90); RED CELL DISTRI WIDTH 19.8 % (0-14.5); WHITE BLOOD COUNT 8.9 10*3/uL (4.8-10.8)
[2023-05-10 15:38] LABS: BUN 26 mg/dl (9-23); CHLORIDE 97 mmol/L (98-107)
== END | disposition home or self-care (01) ==
LOC: RESCLI 01:16
PROVIDERS: Internal Medicine Hematology & Oncology; Student in an Organized Health Care Education/Training Program; ATTEND Internal Medicine
DX: Z51.11 Encounter for antineoplastic chemotherapy (principal); Z45.2 Encounter for adjustment and management of vascular access device; E87.6 Hypokalemia; C32.1 Malignant neoplasm of supraglottis; E78.5 Hyperlipidemia, unspecified; D50.0 Iron deficiency anemia secondary to blood loss (chronic); R11.0 Nausea

== ENCOUNTER → 2023-05-24 | Outpatient (CLI) | payer MEDICARE ==
[2023-05-24 11:08] LABS: BASO # 0.1 10*3/uL (0.0-0.1); BASO % 0.7 % (0.0-1.0); EOS # 0.6 10*3/uL (0.0-0.4); EOS % 5.7 % (1.0-4.0); HEMATOCRIT 30.3 % (42.0-52.0); LYMPH # 0.9 10*3/uL (1.3-4.4); LYMPH % 9.2 % (27.0-41.0); MEAN CELL VOLUME 92.4 fl (80.0-94.0); MEAN CORPUSCULAR HGB 27.1 pg (27.0-31.0); MEAN CORPUSCULAR HGB CONC 29.4 g/dl (33.0-37.0); MEAN PLATELET VOLUME 9.2 fl (9.6-12.3); MONO # 1.2 10*3/uL (0.1-1.0); MONO % 12.8 % (3.0-9.0); NEUT # 6.9 10*3/uL (2.3-7.9); NEUT % 71.4 % (47.0-73.0); PLATELET COUNT AUTOMATED 189 10*3/uL (130-400); RED BLOOD COUNT 3.28 10*6/uL (4.50-5.90); RED CELL DISTRI WIDTH 21.1 % (0-14.5); WHITE BLOOD COUNT 9.6 10*3/uL (4.8-10.8)
== END | disposition home or self-care (01) ==
LOC: LAB 10:46
PROVIDERS: ATTEND Internal Medicine Hematology & Oncology
DX: Z51.11 Encounter for antineoplastic chemotherapy (principal); Z45.2 Encounter for adjustment and management of vascular access device; C32.1 Malignant neoplasm of supraglottis; R11.0 Nausea; E87.5 Hyperkalemia; D50.0 Iron deficiency anemia secondary to blood loss (chronic)

== ENCOUNTER → 2023-06-07 | Outpatient (CLI) | payer MEDICARE ==
[2023-06-07 09:12] LABS: BASO # 0.1 10*3/uL (0.0-0.1); BASO % 0.7 % (0.0-1.0); EOS # 0.4 10*3/uL (0.0-0.4); EOS % 5.3 % (1.0-4.0); HEMATOCRIT 30.7 % (42.0-52.0); LYMPH # 0.8 10*3/uL (1.3-4.4); LYMPH % 11.7 % (27.0-41.0); MEAN CELL VOLUME 92.7 fl (80.0-94.0); MEAN CORPUSCULAR HGB 27.8 pg (27.0-31.0); MEAN PLATELET VOLUME 9.2 fl (9.6-12.3); MONO # 0.9 10*3/uL (0.1-1.0); MONO % 12.5 % (3.0-9.0); NEUT # 4.9 10*3/uL (2.3-7.9); NEUT % 69.5 % (47.0-73.0); PLATELET COUNT AUTOMATED 161 10*3/uL (130-400); RED BLOOD COUNT 3.31 10*6/uL (4.50-5.90); RED CELL DISTRI WIDTH 20.6 % (0-14.5)
== END | disposition home or self-care (01) ==
LOC: LAB 08:50
PROVIDERS: ATTEND Physician Assistant Medical
DX: Z51.11 Encounter for antineoplastic chemotherapy (principal); Z45.2 Encounter for adjustment and management of vascular access device; C32.1 Malignant neoplasm of supraglottis; E87.5 Hyperkalemia; R11.0 Nausea; D50.0 Iron deficiency anemia secondary to blood loss (chronic); T45.4X5A Adverse effect of iron and its compounds, initial encounter; X58.XXXA Exposure to other specified factors, initial encounter

== ENCOUNTER → 2023-07-05 | Outpatient (CLI) | payer MEDICARE ==
[2023-07-05 11:39] LABS: BASO # 0.1 10*3/uL (0.0-0.1); BASO % 0.9 % (0.0-1.0); EOS # 0.5 10*3/uL (0.0-0.4); EOS % 5.7 % (1.0-4.0); HEMATOCRIT 29.2 % (42.0-52.0); LYMPH # 0.6 10*3/uL (1.3-4.4); LYMPH % 6.7 % (27.0-41.0); MEAN CELL VOLUME 93.3 fl (80.0-94.0); MEAN CORPUSCULAR HGB 29.1 pg (27.0-31.0); MEAN CORPUSCULAR HGB CONC 31.2 g/dl (33.0-37.0); MEAN PLATELET VOLUME 9.1 fl (9.6-12.3); MONO # 1.1 10*3/uL (0.1-1.0); MONO % 12.4 % (3.0-9.0); NEUT # 6.7 10*3/uL (2.3-7.9); NEUT % 74.1 % (47.0-73.0); PLATELET COUNT AUTOMATED 171 10*3/uL (130-400); RED BLOOD COUNT 3.13 10*6/uL (4.50-5.90); RED CELL DISTRI WIDTH 19.7 % (0-14.5)
== END | disposition home or self-care (01) ==
LOC: LAB 11:20
PROVIDERS: ATTEND Physician Assistant Medical
DX: Z51.11 Encounter for antineoplastic chemotherapy (principal); Z45.2 Encounter for adjustment and management of vascular access device; C32.1 Malignant neoplasm of supraglottis; R11.0 Nausea; E87.5 Hyperkalemia; D50.0 Iron deficiency anemia secondary to blood loss (chronic); T45.4X5A Adverse effect of iron and its compounds, initial encounter; Y92.89 Other specified places as the place of occurrence of the external cause

== ENCOUNTER → 2023-08-02 | Outpatient (CLI) | payer MEDICARE ==
[2023-08-02 16:54] LABS: BASO # 0.1 10*3/uL (0.0-0.1); EOS # 0.6 10*3/uL (0.0-0.4); HEMATOCRIT 27.7 % (42.0-52.0); LYMPH # 0.6 10*3/uL (1.3-4.4); LYMPH % 8.4 % (27.0-41.0); MEAN CELL VOLUME 96.5 fl (80.0-94.0); MEAN PLATELET VOLUME 9.4 fl (9.6-12.3); MONO # 0.9 10*3/uL (0.1-1.0); MONO % 12.7 % (3.0-9.0); NEUT # 5.1 10*3/uL (2.3-7.9); NEUT % 69.8 % (47.0-73.0); PLATELET COUNT AUTOMATED 163 10*3/uL (130-400); RED BLOOD COUNT 2.87 10*6/uL (4.50-5.90); RED CELL DISTRI WIDTH 17.2 % (0-14.5); WHITE BLOOD COUNT 7.3 10*3/uL (4.8-10.8)
== END | disposition home or self-care (01) ==
LOC: LAB 16:37
PROVIDERS: ATTEND Physician Assistant Medical
DX: Z51.11 Encounter for antineoplastic chemotherapy (principal); C31.2 Malignant neoplasm of frontal sinus; E87.5 Hyperkalemia; R11.0 Nausea; D50.0 Iron deficiency anemia secondary to blood loss (chronic); Z45.2 Encounter for adjustment and management of vascular access device; T45.4X5A Adverse effect of iron and its compounds, initial encounter; Y92.9 Unspecified place or not applicable

== ENCOUNTER 2023-08-29 15:25 | Inpatient (IN) | payer MEDICARE ==
[~2023-08-29] VITALS: Ht 172.7 cm; Wt 69.9 kg
[2023-08-29] VITALS (16 sets, daily range): BP systolic 95–134; BP diastolic 57–90
[~2023-08-29 15:25] MED LIST changes: +ATARAX,VISTARIL50 MG PO; +BUDESONIDE0.5 MG/2 M INH; +ELIQUIS5 M1 PO; +FUROSEMIDE40 MG PO; +Ipratropium Brom3 ML INH; +LOPRESSOR50 M1 PO; +Lopressor25 MG PO; +METHOCARBAMOL750 M1 PO; +METOPROLOL SUCC50 M1 PO; +OXYCODONE HCL5 MG PO; +[UNRECOGNIZED DRUG - OTHER] INH
[2023-08-29] MEDS ORDERED: SODIUM CHLORIDE 0.9% 1,000 ML IV ONE (15:55)
[2023-08-29] MEDS ORDERED: Metoprolol Tartrate 5 MG/5 ML VIAL IV ONE (15:55)
[2023-08-29] MEDS ORDERED: PREDNISONE5 MG PO (15:57)
[2023-08-29] MEDS ORDERED: METOPROLOL TART75 MG PO (15:58)
[2023-08-29 16:23] LABS: EOS % 0.2 % (1.0-4.0); HEMATOCRIT 32.3 % (42.0-52.0); LYMPH # 0.7 10*3/uL (1.3-4.4); LYMPH % 6.7 % (27.0-41.0); MEAN CELL VOLUME 94.7 fl (80.0-94.0); MEAN CORPUSCULAR HGB 30.5 pg (27.0-31.0); MEAN CORPUSCULAR HGB CONC 32.2 g/dl (33.0-37.0); MEAN PLATELET VOLUME 9.1 fl (9.6-12.3); MONO # 0.7 10*3/uL (0.1-1.0); MONO % 7.5 % (3.0-9.0); NEUT # 8.2 10*3/uL (2.3-7.9); NEUT % 84.9 % (47.0-73.0); PLATELET COUNT AUTOMATED 204 10*3/uL (130-400); RED CELL DISTRI WIDTH 17.3 % (0-14.5); WHITE BLOOD COUNT 9.7 10*3/uL (4.8-10.8)
[2023-08-29 16:24] LABS: RED BLOOD COUNT 3.41 10*6/uL (4.50-5.90)
[2023-08-29 16:34] LABS: ACT PARTIAL THROMBO TIME 24.7 SECONDS (20.0-32.1)
[2023-08-29 16:42] LABS: ALKALINE PHOSPHATASE 55 U/L (46-116); BUN 46 mg/dl (9-23); CHLORIDE 100 mmol/L (98-107); POTASSIUM 4.5 mmol/L (3.4-5.1); SGPT/ALT 24 U/L (5-49); TOTAL PROTEIN 6.7 gm/dL (6.0-8.0)
[2023-08-29 16:43] LABS: ETHYL ALCOHOL < 3.0 mg/dl (<3)
[2023-08-29] MEDS ORDERED: FUROSEMIDE 40 MG/4 ML VIAL IV ONE (16:45)
[2023-08-29] MEDS ORDERED: Ceftriaxone Sodium 1 GM/10 ML SYR IV ONE (17:05)
[2023-08-29] MEDS ORDERED: AZITHROMYCIN 250 ML IV ONE (17:05)
[2023-08-29 18:03] LABS: BILIRUBIN Negative (Negative); BLOOD Negative (Negative); CLARITY Clear (Clear); COLOR Yellow (Yellow); GLUCOSE Negative (Negative); KETONE Negative (Negative); LEUKO ESTERASE Negative (Negative); NITRITE Negative (Negative); PH 5.5 (4.5-8.0); UROBILINOGEN 0.2 E.U./dl (0.0-1.0)
[2023-08-29 18:09] LABS: URINE AMPHETAMINES Negative (1000ng/ml); URINE BARBITURATES Negative (200ng/ml); URINE BENZODIAZEPINES Negative (200ng/ml); URINE CANNABINOIDS (THC) Negative (50ng/ml); URINE COCAINE Negative (300ng/ml); URINE METHADONE Negative (300ng/ml); URINE OPIATES Negative (300ng/ml); URINE PHENCYCLIDINE Negative (25ng/ml)
[2023-08-29] MEDS ORDERED: Albuterol Sulf/Ipratropium 3 ML VIAL NEB ONE ×2 (18:10→22:45)
[2023-08-29 18:11] LABS: EPITHELIAL CELLS 0-2; WBC 0-2 wbc/hpf (0-5)
[2023-08-29] MEDS ORDERED: Diltiazem Hydrochloride 25 MG/5 ML VIAL IV ONE ×3 (18:15→20:50)
[2023-08-29] MEDS ORDERED: Diltiazem Hydrochloride 125 ML IV SCH (22:10)
[2023-08-29] MEDS ORDERED: ACETAMINOPHEN 325 MG TAB PO PRN (23:40)
[2023-08-29] MEDS ORDERED: TEMAZEPAM 15 MG CAP PO PRN (23:40)
[2023-08-29] MEDS ORDERED: BISACODYL 5 MG TAB PO PRN (23:40)
[2023-08-29] MEDS ORDERED: ACETAMINOPHEN 650 MG SUPP R PRN (23:40)
[2023-08-29] MEDS ORDERED: BISACODYL 10 MG SUPP R PRN (23:40)
[2023-08-29] MEDS ORDERED: Magnesium Hydroxide 30 ML UDC PO PRN (23:40)
[2023-08-29] MEDS ORDERED: Cefepime Hydrochloride 1 GM in SODIUM CHLORIDE 0.9% 50 ML IV SCH (23:50)
[2023-08-30] VITALS (12 sets, daily range): BP systolic 95–148; BP diastolic 43–82
[2023-08-30] MEDS ORDERED: VANCOMYCIN HCL 1,250 MG in SODIUM CHLORIDE 0.9% 250 ML IV ONE (00:40)
[2023-08-30 06:47] LABS: EOS # 0.1 10*3/uL (0.0-0.4); EOS % 1.1 % (1.0-4.0); HEMATOCRIT 27.6 % (42.0-52.0); LYMPH # 0.9 10*3/uL (1.3-4.4); LYMPH % 12.3 % (27.0-41.0); MEAN CELL VOLUME 94.5 fl (80.0-94.0); MEAN CORPUSCULAR HGB 30.5 pg (27.0-31.0); MEAN CORPUSCULAR HGB CONC 32.2 g/dl (33.0-37.0); MEAN PLATELET VOLUME 8.9 fl (9.6-12.3); MONO # 0.7 10*3/uL (0.1-1.0); MONO % 9.4 % (3.0-9.0); NEUT # 5.5 10*3/uL (2.3-7.9); NEUT % 76.6 % (47.0-73.0); PLATELET COUNT AUTOMATED 154 10*3/uL (130-400); RED BLOOD COUNT 2.92 10*6/uL (4.50-5.90); RED CELL DISTRI WIDTH 17.2 % (0-14.5); WHITE BLOOD COUNT 7.2 10*3/uL (4.8-10.8)
[2023-08-30 07:16] LABS: BUN 29 mg/dl (9-23); CHLORIDE 100 mmol/L (98-107); FREE T4 1.48 ng/dl (0.89-1.76); POTASSIUM 4.1 mmol/L (3.4-5.1)
[2023-08-30] MEDS ORDERED: SODIUM CHLORIDE 0.9% 50 ML BAG IV ONE (07:51)
[2023-08-30] MEDS ORDERED: Vancomycin Hydrochloride 500 MG VIAL IV ONE (07:51)
[2023-08-30] MEDS ORDERED: Vancomycin Hydrochloride 1,000 MG VIAL IV ONE (07:51)
[2023-08-30] MEDS ORDERED: SODIUM CHLORIDE 0.9% 250 ML BAG IV ONE (07:51)
[2023-08-30] MEDS ORDERED: Cefepime Hydrochloride 1 GM VIAL IV ONE (07:51)
[2023-08-30] MEDS ORDERED: DRONEDARONE HYDROCHLORIDE 400 MG TAB PO SCH (08:00)
[2023-08-30] MEDS ORDERED: Levalbuterol Hydrochloride 1.25 MG VIAL NEB PRN (08:40)
[2023-08-30] MEDS ORDERED: LEVOFLOXACIN 150 ML IV SCH (10:00)
[2023-08-30] MEDS ORDERED: FUROSEMIDE 40 MG/4 ML VIAL IV SCH (10:00)
[2023-08-30] MEDS ORDERED: APIXABAN 5 MG TAB PO SCH (10:00)
[2023-08-30] MEDS ORDERED: predniSONE 10 MG TAB PO SCH (10:00)
[2023-08-30] MEDS ORDERED: DIGOXIN 500 MCG/2 ML AMP IV ONE (11:00)
[2023-08-30] MEDS ORDERED: DILTIAZEM CD 120 MG CAP PO ONE (11:05)
[2023-08-30] MEDS ORDERED: Cefepime Hydrochloride 1 GM in SODIUM CHLORIDE 0.9% 50 ML IV SCH (14:00)
[2023-08-30] MEDS ORDERED: VANCOMYCIN/WATER FOR INJ (PEG) 250 ML IV SCH (16:00)
[2023-08-30] MEDS ORDERED: METHOCARBAMOL 750 MG TAB PO PRN (18:20)
[2023-08-30] MEDS ORDERED: hydrOXYzine pamoate 25 MG CAP PO PRN (18:20)
[2023-08-30] MEDS ORDERED: Albuterol Sulf/Ipratropium 3 ML VIAL NEB SCH (18:25)
[2023-08-31] VITALS: BP 144/73
[2023-08-31 03:41] LABS: EOS # 0.1 10*3/uL (0.0-0.4); EOS % 1.2 % (1.0-4.0); HEMATOCRIT 25.5 % (42.0-52.0); LYMPH # 0.7 10*3/uL (1.3-4.4); LYMPH % 10.3 % (27.0-41.0); MEAN CELL VOLUME 94.8 fl (80.0-94.0); MEAN CORPUSCULAR HGB 30.9 pg (27.0-31.0); MEAN CORPUSCULAR HGB CONC 32.5 g/dl (33.0-37.0); MEAN PLATELET VOLUME 8.5 fl (9.6-12.3); MONO # 0.6 10*3/uL (0.1-1.0); MONO % 8.8 % (3.0-9.0); NEUT # 5.4 10*3/uL (2.3-7.9); NEUT % 79.3 % (47.0-73.0); PLATELET COUNT AUTOMATED 130 10*3/uL (130-400); RED BLOOD COUNT 2.69 10*6/uL (4.50-5.90); RED CELL DISTRI WIDTH 16.7 % (0-14.5); WHITE BLOOD COUNT 6.8 10*3/uL (4.8-10.8)
[2023-08-31 04:01] LABS: BUN 27 mg/dl (9-23); CHLORIDE 100 mmol/L (98-107)
[2023-08-31] MEDS ORDERED: DILTIAZEM CD 120 MG CAP PO SCH (07:30)
[2023-08-31 08:00] VITALS: BP 147/66
[2023-08-31] MEDS ORDERED: Metoprolol Tartrate 50 MG TAB PO SCH (08:20)
[2023-08-31] MEDS ORDERED: EMPAGLIFLOZIN 10 MG TABLET PO SCH (10:00)
[2023-08-31] MEDS ORDERED: Pantoprazole Sodium 40 MG TAB PO SCH (10:00)
[2023-08-31] MEDS ORDERED: ARFORMOTEROL TARTRATE 15 MCG INH SCH (10:00)
[2023-08-31 12:00] VITALS: BP 101/65
[2023-08-31] MEDS ORDERED: HEEL PROTECTOR DEVICE ONE (13:24)
[2023-08-31] MEDS ORDERED: CHAIR CUSHION DEVICE ONE (13:24)
[2023-08-31] MEDS ORDERED: FOAM BANDAGE HEEL T ONE (13:28)
[2023-08-31] MEDS ORDERED: Cefepime Hydrochloride 2 GM,IV 1 EA in SODIUM CHLORIDE 0.9% 50 ML IV SCH (14:00)
[2023-08-31 16:00] VITALS: BP 100/68
[2023-08-31 20:00] VITALS: BP 121/65
[2023-08-31] MEDS ORDERED: Dextromethorphan Hydrobromid 1 TAB TAB PO SCH (22:00)
[2023-09-01] VITALS: BP 116/73
[2023-09-01 06:49] LABS: BASO % 0.1 % (0.0-1.0); EOS # 0.1 10*3/uL (0.0-0.4); EOS % 1.5 % (1.0-4.0); HEMATOCRIT 25.7 % (42.0-52.0); LYMPH # 0.6 10*3/uL (1.3-4.4); LYMPH % 7.7 % (27.0-41.0); MEAN CELL VOLUME 95.2 fl (80.0-94.0); MEAN CORPUSCULAR HGB 31.5 pg (27.0-31.0); MEAN CORPUSCULAR HGB CONC 33.1 g/dl (33.0-37.0); MEAN PLATELET VOLUME 9.5 fl (9.6-12.3); MONO # 0.7 10*3/uL (0.1-1.0); MONO % 8.6 % (3.0-9.0); NEUT # 6.6 10*3/uL (2.3-7.9); NEUT % 81.7 % (47.0-73.0); PLATELET COUNT AUTOMATED 127 10*3/uL (130-400); RED CELL DISTRI WIDTH 17.2 % (0-14.5); WHITE BLOOD COUNT 8.1 10*3/uL (4.8-10.8)
[2023-09-01 06:58] LABS: BUN 23 mg/dl (9-23); CHLORIDE 101 mmol/L (98-107); POTASSIUM 3.8 mmol/L (3.4-5.1)
[2023-09-01 08:00] VITALS: BP 149/70
[2023-09-01 12:00] VITALS: BP 99/62
[2023-09-01] MEDS ORDERED: FLUTICASONE PROPIONATE Nasal 16 Gm spray NAS SCH (15:25)
[2023-09-01 16:00] VITALS: BP 120/66
[2023-09-01 20:00] VITALS: BP 104/62
[2023-09-02] VITALS: BP 116/63
[2023-09-02 06:05] LABS: EOS # 0.1 10*3/uL (0.0-0.4); EOS % 1.3 % (1.0-4.0); HEMATOCRIT 24.8 % (42.0-52.0); LYMPH # 0.6 10*3/uL (1.3-4.4); LYMPH % 7.5 % (27.0-41.0); MEAN CELL VOLUME 96.9 fl (80.0-94.0); MEAN CORPUSCULAR HGB 30.5 pg (27.0-31.0); MEAN CORPUSCULAR HGB CONC 31.5 g/dl (33.0-37.0); MEAN PLATELET VOLUME 9.4 fl (9.6-12.3); MONO # 0.6 10*3/uL (0.1-1.0); MONO % 7.9 % (3.0-9.0); NEUT # 6.6 10*3/uL (2.3-7.9); NEUT % 82.9 % (47.0-73.0); PLATELET COUNT AUTOMATED 106 10*3/uL (130-400); RED BLOOD COUNT 2.56 10*6/uL (4.50-5.90); RED CELL DISTRI WIDTH 16.8 % (0-14.5)
[2023-09-02 06:20] LABS: BUN 24 mg/dl (9-23); CHLORIDE 101 mmol/L (98-107); POTASSIUM 3.9 mmol/L (3.4-5.1)
[2023-09-02 08:00] VITALS: BP 139/78
[2023-09-02] MEDS ORDERED: FOAM BANDAGE 5X5 T ONE (11:47)
[2023-09-02 12:00] VITALS: BP 121/65
[2023-09-02 16:00] VITALS: BP 130/70
[2023-09-02 20:00] VITALS: BP 135/77
[2023-09-03] VITALS: BP 113/63; BP 138/64
[2023-09-03 05:13] LABS: BUN 21 mg/dl (9-23); CHLORIDE 103 mmol/L (98-107); POTASSIUM 3.8 mmol/L (3.4-5.1)
[2023-09-03 06:11] LABS: BASO % 0.1 % (0.0-1.0); EOS # 0.1 10*3/uL (0.0-0.4); EOS % 1.2 % (1.0-4.0); HEMATOCRIT 24.8 % (42.0-52.0); LYMPH # 0.6 10*3/uL (1.3-4.4); LYMPH % 6.9 % (27.0-41.0); MEAN CELL VOLUME 97.3 fl (80.0-94.0); MEAN CORPUSCULAR HGB 30.6 pg (27.0-31.0); MEAN CORPUSCULAR HGB CONC 31.5 g/dl (33.0-37.0); MEAN PLATELET VOLUME 9.2 fl (9.6-12.3); MONO # 0.6 10*3/uL (0.1-1.0); MONO % 7.2 % (3.0-9.0); NEUT % 84.1 % (47.0-73.0); PLATELET COUNT AUTOMATED 106 10*3/uL (130-400); RED BLOOD COUNT 2.55 10*6/uL (4.50-5.90); WHITE BLOOD COUNT 8.3 10*3/uL (4.8-10.8)
[2023-09-03 08:00] VITALS: BP 146/71
[2023-09-03] MEDS ORDERED: FUROSEMIDE 40 MG TAB PO SCH (10:00)
[2023-09-03 12:00] VITALS: BP 100/57
[2023-09-03 16:00] VITALS: BP 125/66; BP 129/57
[2023-09-03 20:00] VITALS: BP 114/65
[2023-09-04] VITALS: BP 123/73
[2023-09-04 05:57] LABS: BASO % 0.1 % (0.0-1.0); EOS # 0.1 10*3/uL (0.0-0.4); EOS % 1.4 % (1.0-4.0); HEMATOCRIT 24.5 % (42.0-52.0); LYMPH # 0.5 10*3/uL (1.3-4.4); LYMPH % 6.8 % (27.0-41.0); MEAN CELL VOLUME 96.8 fl (80.0-94.0); MEAN CORPUSCULAR HGB 31.2 pg (27.0-31.0); MEAN CORPUSCULAR HGB CONC 32.2 g/dl (33.0-37.0); MEAN PLATELET VOLUME 9.7 fl (9.6-12.3); MONO # 0.6 10*3/uL (0.1-1.0); MONO % 7.6 % (3.0-9.0); NEUT # 6.6 10*3/uL (2.3-7.9); NEUT % 83.6 % (47.0-73.0); PLATELET COUNT AUTOMATED 90 10*3/uL (130-400); RED BLOOD COUNT 2.53 10*6/uL (4.50-5.90); RED CELL DISTRI WIDTH 16.9 % (0-14.5); WHITE BLOOD COUNT 7.9 10*3/uL (4.8-10.8)
[2023-09-04 06:00] LABS: BUN 22 mg/dl (9-23); CHLORIDE 103 mmol/L (98-107)
[2023-09-04 08:00] VITALS: BP 145/81
[2023-09-04 12:00] VITALS: BP 125/62
[2023-09-04 16:00] VITALS: BP 94/49
[2023-09-04 20:00] VITALS: BP 113/68
[2023-09-05] VITALS: BP 114/56
[2023-09-05 06:10] LABS: BASO % 0.1 % (0.0-1.0); EOS # 0.1 10*3/uL (0.0-0.4); EOS % 1.4 % (1.0-4.0); HEMATOCRIT 24.6 % (42.0-52.0); LYMPH # 0.6 10*3/uL (1.3-4.4); LYMPH % 8.5 % (27.0-41.0); MEAN CELL VOLUME 96.5 fl (80.0-94.0); MEAN CORPUSCULAR HGB CONC 32.1 g/dl (33.0-37.0); MEAN PLATELET VOLUME 9.5 fl (9.6-12.3); MONO # 0.6 10*3/uL (0.1-1.0); MONO % 8.1 % (3.0-9.0); NEUT # 5.7 10*3/uL (2.3-7.9); NEUT % 81.3 % (47.0-73.0); PLATELET COUNT AUTOMATED 90 10*3/uL (130-400); RED BLOOD COUNT 2.55 10*6/uL (4.50-5.90); RED CELL DISTRI WIDTH 16.7 % (0-14.5); WHITE BLOOD COUNT 7.1 10*3/uL (4.8-10.8)
[2023-09-05 06:35] LABS: BUN 25 mg/dl (9-23); CHLORIDE 104 mmol/L (98-107); POTASSIUM 3.8 mmol/L (3.4-5.1)
[2023-09-05 08:00] VITALS: BP 141/69
[2023-09-05 12:00] VITALS: BP 121/62
[2023-09-05 16:00] VITALS: BP 120/65
[2023-09-05 20:00] VITALS: BP 122/79
[2023-09-06] VITALS (9 sets, daily range): BP systolic 121–142; BP diastolic 62–102
[2023-09-06 06:02] LABS: BASO % 0.1 % (0.0-1.0); EOS # 0.1 10*3/uL (0.0-0.4); EOS % 1.7 % (1.0-4.0); HEMATOCRIT 23.9 % (42.0-52.0); LYMPH # 0.7 10*3/uL (1.3-4.4); LYMPH % 9.5 % (27.0-41.0); MEAN CELL VOLUME 96.8 fl (80.0-94.0); MEAN CORPUSCULAR HGB 31.2 pg (27.0-31.0); MEAN CORPUSCULAR HGB CONC 32.2 g/dl (33.0-37.0); MEAN PLATELET VOLUME 9.4 fl (9.6-12.3); MONO # 0.6 10*3/uL (0.1-1.0); MONO % 8.6 % (3.0-9.0); NEUT # 5.5 10*3/uL (2.3-7.9); NEUT % 79.5 % (47.0-73.0); PLATELET COUNT AUTOMATED 87 10*3/uL (130-400); RED BLOOD COUNT 2.47 10*6/uL (4.50-5.90); RED CELL DISTRI WIDTH 16.7 % (0-14.5)
[2023-09-06 06:03] LABS: BUN 25 mg/dl (9-23); CHLORIDE 104 mmol/L (98-107); POTASSIUM 3.7 mmol/L (3.4-5.1)
[2023-09-06] MEDS ORDERED: Albuterol Sulfate 2.5 MG/0.5 ML VIAL NEB ONE ×2 (08:30→09:00)
[2023-09-06] MEDS ORDERED: Lactated Ringer's Solution 1,000 ML IV ONE ×2 (08:30→08:40)
[2023-09-06] MEDS ORDERED: Lidocaine Hydrochloride 4% 5 ML AMP NEB ONE (08:30)
[2023-09-06] MEDS ORDERED: Lidocaine Hydrochloride 4% 5 ML AMP ONE (09:00)
[2023-09-06] MEDS ORDERED: Albuterol Sulf/Ipratropium 3 ML VIAL NEB ONE ×2 (09:30→09:35)
[2023-09-06] MEDS ORDERED: PROPOFOL 200 MG/20 ML VIAL IV ONE (16:42)
[2023-09-06] MEDS ORDERED: Lidocaine Hydrochloride 2% 10 ML AMP IM ONE (16:42)
[2023-09-06] MEDS ORDERED: TEMAZEPAM 15 MG CAP PO PRN (22:00)
[2023-09-07] VITALS: BP 133/71
[2023-09-07 08:00] VITALS: BP 147/77
[2023-09-07] MEDS ORDERED: LEVOFLOXACIN 750 MG TAB PO SCH (10:00)
[2023-09-07 11:08] LABS: ACID FAST SPEC PROCESSING Concentration (.)
[2023-09-07 12:00] VITALS: BP 125/61; BP 147/77
[2023-09-07] MEDS ORDERED: DILTIAZEM HCL120 M2 PO (13:01)
[2023-09-07] MEDS ORDERED: JARDIANCE10 MG PO (13:01)
[2023-09-07] MEDS ORDERED: LEVOFLOXACIN750 M2 PO (13:01)
[2023-09-07] MEDS ORDERED: METOPROLOL TART50 M1 PO (13:01)
[2023-09-07] MEDS ORDERED: PREDNISONE10 MG PO (13:01)
== END 2023-09-07 14:00 | disposition home or self-care (01) | DRG 193 ==
LOC: ED 15:25 → EDHOLD 23:09 → 4E 23:09 → EDHOLD 08-30 08:51 → 4E 08-30 15:34
PROVIDERS: Internal Medicine; Internal Medicine Critical Care Medicine; Student in an Organized Health Care Education/Training Program; ADMIT Internal Medicine; ATTEND Internal Medicine
PROC: 0BC18ZZ Extirpation of Matter from Trachea, Via Natural or Artificial Opening Endoscopic (ICD-10-PCS; principal; 2023-09-06)
PROC: 0BC98ZZ Extirpation of Matter from Lingula Bronchus, Via Natural or Artificial Opening Endoscopic (ICD-10-PCS; 2023-09-06)
PROC: 0BC48ZZ Extirpation of Matter from Right Upper Lobe Bronchus, Via Natural or Artificial Opening Endoscopic (ICD-10-PCS; 2023-09-06)
PROC: 0BC88ZZ Extirpation of Matter from Left Upper Lobe Bronchus, Via Natural or Artificial Opening Endoscopic (ICD-10-PCS; 2023-09-06)
PROC: 0BC58ZZ Extirpation of Matter from Right Middle Lobe Bronchus, Via Natural or Artificial Opening Endoscopic (ICD-10-PCS; 2023-09-06)
PROC: 0BC38ZZ Extirpation of Matter from Right Main Bronchus, Via Natural or Artificial Opening Endoscopic (ICD-10-PCS; 2023-09-06)
PROC: 0BC78ZZ Extirpation of Matter from Left Main Bronchus, Via Natural or Artificial Opening Endoscopic (ICD-10-PCS; 2023-09-06)
PROC: 0BC68ZZ Extirpation of Matter from Right Lower Lobe Bronchus, Via Natural or Artificial Opening Endoscopic (ICD-10-PCS; 2023-09-06)
PROC: 0BCB8ZZ Extirpation of Matter from Left Lower Lobe Bronchus, Via Natural or Artificial Opening Endoscopic (ICD-10-PCS; 2023-09-06)
DX: J15.9 Unspecified bacterial pneumonia (principal); I50.33 Acute on chronic diastolic (congestive) heart failure; N17.9 Acute kidney failure, unspecified; J96.12 Chronic respiratory failure with hypercapnia; K92.2 Gastrointestinal hemorrhage, unspecified; J44.1 Chronic obstructive pulmonary disease with (acute) exacerbation; J44.0 Chronic obstructive pulmonary disease with (acute) lower respiratory infection; T17.590A Other foreign object in bronchus causing asphyxiation, initial encounter; I11.0 Hypertensive heart disease with heart failure; D53.9 Nutritional anemia, unspecified; K21.9 Gastro-esophageal reflux disease without esophagitis; K76.0 Fatty (change of) liver, not elsewhere classified; C14.0 Malignant neoplasm of pharynx, unspecified; Z96.641 Presence of right artificial hip joint; G47.33 Obstructive sleep apnea (adult) (pediatric); F32.A Depression, unspecified; D50.9 Iron deficiency anemia, unspecified; E55.9 Vitamin D deficiency, unspecified; I48.0 Paroxysmal atrial fibrillation; R13.12 Dysphagia, oropharyngeal phase; D69.6 Thrombocytopenia, unspecified; W44.F9XA Other object of natural or organic material, entering into or through a natural orifice, initial encounter; Z91.02 Food additives allergy status; Z93.0 Tracheostomy status; Z89.422 Acquired absence of other left toe(s); Z80.6 Family history of leukemia; Z83.6 Family history of other diseases of the respiratory system; Z85.89 Personal history of malignant neoplasm of other organs and systems; Y93.89 Activity, other specified; Y92.89 Other specified places as the place of occurrence of the external cause; Y99.8 Other external cause status; Z68.23 Body mass index [BMI] 23.0-23.9, adult

== ENCOUNTER 2023-10-30 09:29 | Inpatient (IN) | payer MEDICARE ==
[~2023-10-30] VITALS: Ht 172.7 cm; Wt 72.1 kg
[~2023-10-30 09:29] MED LIST changes: +DILTIAZEM HCL120 M2 PO; +JARDIANCE10 MG PO; +LEVOFLOXACIN750 M2 PO; +METOPROLOL TART50 M1 PO; +METOPROLOL TART75 MG PO; +PREDNISONE5 MG PO
[2023-10-30] MEDS ORDERED: TOPROL XL50 M1 PO (09:42)
[2023-10-30 09:43] VITALS: BP 123/71
[2023-10-30 10:46] LABS: BASO # 0.1 10*3/uL (0.0-0.1); BASO % 0.7 % (0.0-1.0); EOS # 0.2 10*3/uL (0.0-0.4); HEMATOCRIT 34.9 % (42.0-52.0); LYMPH # 0.6 10*3/uL (1.3-4.4); LYMPH % 7.5 % (27.0-41.0); MEAN CELL VOLUME 102.6 fl (80.0-94.0); MEAN CORPUSCULAR HGB 28.5 pg (27.0-31.0); MEAN CORPUSCULAR HGB CONC 27.8 g/dl (33.0-37.0); MEAN PLATELET VOLUME 10.4 fl (9.6-12.3); MONO # 0.8 10*3/uL (0.1-1.0); MONO % 10.4 % (3.0-9.0); NEUT # 6.3 10*3/uL (2.3-7.9); NEUT % 78.7 % (47.0-73.0); PLATELET COUNT AUTOMATED 167 10*3/uL (130-400); RED CELL DISTRI WIDTH 16.2 % (0-14.5)
[2023-10-30 10:51] VITALS: BP 138/77
[2023-10-30 11:01] LABS: ACT PARTIAL THROMBO TIME 33.5 SECONDS (20.0-32.1)
[2023-10-30 11:02] LABS: ALKALINE PHOSPHATASE 73 U/L (46-116); BUN 24 mg/dl (9-23); CHLORIDE 100 mmol/L (98-107); POTASSIUM 5.5 mmol/L (3.4-5.1); SGPT/ALT 9 U/L (5-49)
[2023-10-30 12:02] VITALS: BP 119/77
[2023-10-30 12:12] LABS: ABG O2 SATURATION 95.2 % (94.0-98.0); ARTERIAL BLOOD GAS PO2 81.3 mmHg (83.0-108.0)
[2023-10-30 12:17] LABS: ARTERIAL BLOOD GAS PH 7.211 (7.350-7.450)
[2023-10-30] MEDS ORDERED: methylPREDNISolone sod succ 40 MG VIAL IV ONE (12:35)
[2023-10-30] MEDS ORDERED: Albuterol Sulf/Ipratropium 3 ML VIAL NEB ONE (12:35)
[2023-10-30] MEDS ORDERED: AZITHROMYCIN 250 ML IV ONE (12:50)
[2023-10-30] MEDS ORDERED: Ceftriaxone Sodium 1 GM/10 ML SYR IV ONE (12:50)
[2023-10-30] MEDS ORDERED: ACETAMINOPHEN 325 MG TAB PO PRN (13:05)
[2023-10-30] MEDS ORDERED: Magnesium Hydroxide 30 ML UDC PO PRN (13:05)
[2023-10-30] MEDS ORDERED: Ondansetron Hydrochloride 4 MG/2 ML VIAL IV PRN (13:05)
[2023-10-30] MEDS ORDERED: BISACODYL 10 MG SUPP R PRN (13:05)
[2023-10-30] MEDS ORDERED: BISACODYL 5 MG TAB PO PRN (13:05)
[2023-10-30] MEDS ORDERED: Acetaminophen/Hydrocodone 5 MG/325 MG TABLET PO PRN (13:05)
[2023-10-30] MEDS ORDERED: ACETAMINOPHEN 650 MG SUPP R PRN (13:05)
[2023-10-30] MEDS ORDERED: Albuterol Sulf/Ipratropium 3 ML VIAL NEB SCH (13:40)
[2023-10-30] MEDS ORDERED: Albuterol Sulfate 2.5 MG/3 ML VIAL NEB ONE (13:45)
[2023-10-30] MEDS ORDERED: METHOCARBAMOL 750 MG TAB PO PRN (13:50)
[2023-10-30 14:00] VITALS: BP 125/62
[2023-10-30 15:19] LABS: ABG O2 SATURATION 95.3 % (94.0-98.0); ARTERIAL BLOOD GAS PH 7.307 (7.350-7.450); ARTERIAL BLOOD GAS PO2 71.6 mmHg (83.0-108.0)
[2023-10-30 15:20] LABS: ABG BASE EXCESS 8.8 mmol/L (-2.0-3.0)
[2023-10-30 16:00] VITALS: BP 117/75
[2023-10-30 16:30] LABS: ALKALINE PHOSPHATASE 71 U/L (46-116); BUN 27 mg/dl (9-23); CHLORIDE 99 mmol/L (98-107); POTASSIUM 5.8 mmol/L (3.4-5.1); SGPT/ALT 9 U/L (5-49); TOTAL PROTEIN 7.1 gm/dL (6.0-8.0)
[2023-10-30] MEDS ORDERED: Pantoprazole Sodium 40 MG TAB PO SCH (18:00)
[2023-10-30] MEDS ORDERED: hydrOXYzine pamoate 25 MG CAP PO PRN (18:00)
[2023-10-30 20:00] VITALS: BP 113/75
[2023-10-30] MEDS ORDERED: DILTIAZEM CD 120 MG CAP PO SCH (22:00)
[2023-10-30] MEDS ORDERED: APIXABAN 5 MG TAB PO SCH (22:00)
[2023-10-30] MEDS ORDERED: METOPROLOL SUCCINATE XR 50 MG TAB PO SCH (22:00)
[2023-10-30] MEDS ORDERED: methylPREDNISolone sod succ 40 MG VIAL IV SCH (22:00)
[2023-10-31] VITALS (16 sets, daily range): BP systolic 103–144; BP diastolic 43–89
[2023-10-31 06:12] LABS: ACT PARTIAL THROMBO TIME 30.8 SECONDS (20.0-32.1)
[2023-10-31 06:15] LABS: BASO % 0.3 % (0.0-1.0); HEMATOCRIT 33.1 % (42.0-52.0); LYMPH # 0.3 10*3/uL (1.3-4.4); LYMPH % 9.7 % (27.0-41.0); MEAN CORPUSCULAR HGB CONC 29.3 g/dl (33.0-37.0); MEAN PLATELET VOLUME 10.7 fl (9.6-12.3); MONO # 0.1 10*3/uL (0.1-1.0); MONO % 2.5 % (3.0-9.0); NEUT # 2.8 10*3/uL (2.3-7.9); NEUT % 86.2 % (47.0-73.0); PLATELET COUNT AUTOMATED 166 10*3/uL (130-400); RED BLOOD COUNT 3.34 10*6/uL (4.50-5.90); RED CELL DISTRI WIDTH 16.2 % (0-14.5); WHITE BLOOD COUNT 3.2 10*3/uL (4.8-10.8)
[2023-10-31 06:28] LABS: MEAN CELL VOLUME 99.1 fl (80.0-94.0)
[2023-10-31 06:51] LABS: ALKALINE PHOSPHATASE 67 U/L (46-116); BUN 27 mg/dl (9-23); CHLORIDE 99 mmol/L (98-107); CHOLESTEROL 182 mg/dL (<200); FREE T4 1.04 ng/dl (0.89-1.76); LDL CHOLESTEROL 107 mg/dL (9-159); POTASSIUM 5.5 mmol/L (3.4-5.1); SGPT/ALT 10 U/L (5-49); TOTAL PROTEIN 6.8 gm/dL (6.0-8.0); TRIGLYCERIDES 82 mg/dl (<150)
[2023-10-31] MEDS ORDERED: FLUCONAZOLE 150 MG TAB PO ONE (07:00)
[2023-10-31 07:48] LABS: ABG BASE EXCESS 5.8 mmol/L (-2.0-3.0); ABG O2 SATURATION 96.3 % (94.0-98.0); ARTERIAL BLOOD GAS PH 7.314 (7.350-7.450); ARTERIAL BLOOD GAS PO2 91.2 mmHg (83.0-108.0)
[2023-10-31 07:53] LABS: VITAMIN D, 25-HYDROXY 33.7 ng/mL (30-100)
[2023-10-31] MEDS ORDERED: Metoprolol Tartrate 5 MG/5 ML VIAL IV ONE (08:45)
[2023-10-31] MEDS ORDERED: FUROSEMIDE 40 MG TAB PO SCH (10:00)
[2023-10-31] MEDS ORDERED: EMPAGLIFLOZIN 10 MG TABLET PO SCH (10:00)
[2023-10-31] MEDS ORDERED: Diltiazem Hydrochloride 125 ML IV SCH (10:40)
[2023-10-31] MEDS ORDERED: AZITHROMYCIN 250 ML IV SCH (12:00)
[2023-10-31] MEDS ORDERED: DIGOXIN 500 MCG/2 ML AMP IV ONE (12:15)
[2023-10-31] MEDS ORDERED: Ceftriaxone Sodium 1 GM in SYRINGE INFUSION 10 ML IV SCH (13:00)
[2023-10-31] MEDS ORDERED: NYSTATIN 15 GM BOT T SCH (14:00)
[2023-11-01] VITALS (10 sets, daily range): BP systolic 121–145; BP diastolic 72–87
[2023-11-01 05:37] LABS: BUN 33 mg/dl (9-23); CHLORIDE 97 mmol/L (98-107); POTASSIUM 4.7 mmol/L (3.4-5.1)
[2023-11-01 06:13] LABS: HEMATOCRIT 28.8 % (42.0-52.0); MEAN CORPUSCULAR HGB 28.6 pg (27.0-31.0); MEAN CORPUSCULAR HGB CONC 29.9 g/dl (33.0-37.0); MEAN PLATELET VOLUME 10.6 fl (9.6-12.3); PLATELET COUNT AUTOMATED 181 10*3/uL (130-400); RED BLOOD COUNT 3.01 10*6/uL (4.50-5.90); RED CELL DISTRI WIDTH 16.5 % (0-14.5); WHITE BLOOD COUNT 8.1 10*3/uL (4.8-10.8)
[2023-11-01 06:49] LABS: MANUAL DIFF REFLEX YES; MEAN CELL VOLUME 95.7 fl (80.0-94.0)
[2023-11-01 07:32] LABS: TOTAL CELLS COUNTED 100 #CELLS
[2023-11-01 07:33] LABS: PLATELET SUFFICIENCY NORMAL (NORMAL)
[2023-11-01] MEDS ORDERED: GUAIFENESIN 600 MG TAB ER PO SCH (10:00)
[2023-11-02] VITALS (11 sets, daily range): BP systolic 118–157; BP diastolic 72–102
[2023-11-02 06:00] LABS: BUN 40 mg/dl (9-23); CHLORIDE 99 mmol/L (98-107); POTASSIUM 4.9 mmol/L (3.4-5.1)
[2023-11-02 06:14] LABS: HEMATOCRIT 32.2 % (42.0-52.0); MANUAL DIFF REFLEX YES; MEAN CELL VOLUME 96.1 fl (80.0-94.0); MEAN CORPUSCULAR HGB 28.4 pg (27.0-31.0); MEAN CORPUSCULAR HGB CONC 29.5 g/dl (33.0-37.0); MEAN PLATELET VOLUME 9.9 fl (9.6-12.3); PLATELET COUNT AUTOMATED 198 10*3/uL (130-400); RED BLOOD COUNT 3.35 10*6/uL (4.50-5.90); RED CELL DISTRI WIDTH 16.8 % (0-14.5); WHITE BLOOD COUNT 7.4 10*3/uL (4.8-10.8)
[2023-11-02 06:59] LABS: OVALOCYTES FEW; PLATELET SUFFICIENCY NORMAL (NORMAL); POLYCHROMASIA SLIGHT; SCHISTOCYTES FEW; TOTAL CELLS COUNTED 100 #CELLS
[2023-11-02] MEDS ORDERED: FLONASE ALLERG9.9 ML NAS (08:30)
[2023-11-02] MEDS ORDERED: Albuterol Sulfate 1.25 MG/3 ML VIAL NEB ONE ×2 (09:15→09:20)
[2023-11-02] MEDS ORDERED: Lidocaine Hydrochloride 4% 5 ML AMP NEB ONE ×2 (09:15→09:20)
[2023-11-02] MEDS ORDERED: Lactated Ringer's Solution 1,000 ML IV ONE ×2 (09:25→09:44)
[2023-11-02] MEDS ORDERED: Lidocaine Hydrochloride 4% 5 ML AMP ONE (09:29)
[2023-11-02] MEDS ORDERED: Albuterol Sulfate 2.5 MG/0.5 ML VIAL NEB ONE (09:29)
[2023-11-02] MEDS ORDERED: Albuterol Sulf/Ipratropium 3 ML VIAL NEB ONE (10:35)
[2023-11-02] MEDS ORDERED: DIGOXIN 500 MCG/2 ML AMP IV ONE (11:35)
[2023-11-02] MEDS ORDERED: Lidocaine Hydrochloride 5 ML VIAL IV ONE (13:45)
[2023-11-02] MEDS ORDERED: PROPOFOL 200 MG/20 ML VIAL IV ONE (13:45)
[2023-11-02] MEDS ORDERED: FLUTICASONE PROPIONATE Nasal 16 Gm spray NAS SCH (22:00)
[2023-11-03] VITALS: BP 137/77
[2023-11-03 06:17] LABS: BUN 38 mg/dl (9-23); CHLORIDE 98 mmol/L (98-107); POTASSIUM 4.6 mmol/L (3.4-5.1)
[2023-11-03 06:27] LABS: HEMATOCRIT 30.9 % (42.0-52.0); MEAN CORPUSCULAR HGB 28.6 pg (27.0-31.0); MEAN CORPUSCULAR HGB CONC 29.8 g/dl (33.0-37.0); MEAN PLATELET VOLUME 10.2 fl (9.6-12.3); PLATELET COUNT AUTOMATED 210 10*3/uL (130-400); RED BLOOD COUNT 3.22 10*6/uL (4.50-5.90); RED CELL DISTRI WIDTH 16.8 % (0-14.5)
[2023-11-03 06:30] LABS: MANUAL DIFF REFLEX YES
[2023-11-03 06:53] LABS: OVALOCYTES FEW; PLATELET SUFFICIENCY NORMAL (NORMAL); POLYCHROMASIA SLIGHT; SCHISTOCYTES FEW; TOTAL CELLS COUNTED 100 #CELLS
[2023-11-03 08:00] VITALS: BP 142/76
[2023-11-03 11:09] LABS: ACID FAST SPEC PROCESSING Concentration (.)
[2023-11-03 12:00] VITALS: BP 142/78
[2023-11-03] MEDS ORDERED: METOPROLOL SUCCINATE XR 50 MG TAB PO ONE (12:00)
[2023-11-03] MEDS ORDERED: DIGOXIN 500 MCG/2 ML AMP IV ONE (12:00)
[2023-11-03 16:00] VITALS: BP 143/90
[2023-11-03 20:00] VITALS: BP 157/90
[2023-11-03] MEDS ORDERED: METOPROLOL SUCCINATE XR 100 MG TAB PO SCH (22:00)
[2023-11-04] VITALS: BP 151/96
[2023-11-04 04:00] VITALS: BP 152/92
[2023-11-04 05:29] LABS: BUN 44 mg/dl (9-23); CHLORIDE 97 mmol/L (98-107); POTASSIUM 4.4 mmol/L (3.4-5.1)
[2023-11-04 08:00] VITALS: BP 155/86
[2023-11-04 12:00] VITALS: BP 160/79
[2023-11-04] MEDS ORDERED: LINEZOLID 600 MG TAB PEG SCH (12:00)
[2023-11-04] MEDS ORDERED: LEVOFLOXACIN 150 ML IV SCH (14:25)
[2023-11-04 16:00] VITALS: BP 140/77
[2023-11-04] MEDS ORDERED: Piperacillin Sodium/Tazobact 50 ML IV SCH (16:00)
[2023-11-04 20:00] VITALS: BP 160/85
[2023-11-04] MEDS ORDERED: DILTIAZEM CD 180 MG CAP PO SCH (22:00)
[2023-11-05] VITALS: BP 150/84
[2023-11-05 04:00] VITALS: BP 150/72
[2023-11-05 08:00] VITALS: BP 142/80
[2023-11-05] MEDS ORDERED: methylPREDNISolone sod succ 40 MG VIAL IV SCH (10:00)
[2023-11-05 12:00] VITALS: BP 140/75
[2023-11-05 16:00] VITALS: BP 127/61
[2023-11-05] MEDS ORDERED: Sulfamethoxazole/Trimethopri 1 TAB TAB PEG SCH ×2 (18:00→22:00)
[2023-11-05 20:00] VITALS: BP 129/67
[2023-11-06 05:39] LABS: BUN 37 mg/dl (9-23); CHLORIDE 95 mmol/L (98-107); POTASSIUM 4.9 mmol/L (3.4-5.1)
[2023-11-06 08:00] VITALS: BP 147/90
[2023-11-06 12:00] VITALS: BP 148/98
[2023-11-06] MEDS ORDERED: DILTIAZEM 24HR180 MG PO (12:31)
[2023-11-06] MEDS ORDERED: LINEZOLID600 MG PO (12:31)
[2023-11-06] MEDS ORDERED: SEPTDS PEG (12:31)
[2023-11-06] MEDS ORDERED: METOPROLOL SUC100 M1 PO (12:31)
[2023-11-06] MEDS ORDERED: PREDNISONE10 MG PO (14:14)
[2023-11-06] MEDS ORDERED: ATARAX,VISTARIL50 MG PO (14:14)
== END 2023-11-06 14:50 | disposition home or self-care (01) | DRG 871 ==
LOC: ED 09:29 → EDHOLD 12:43 → ICCU 12:43 → EDHOLD 12:44 → ICCU 13:19
PROVIDERS: Emergency Medicine; Internal Medicine Critical Care Medicine; Student in an Organized Health Care Education/Training Program; ADMIT Internal Medicine; ATTEND Internal Medicine
PROC: 5A09357 Assistance with Respiratory Ventilation, Less than 24 Consecutive Hours, Continuous Positive Airway Pressure (ICD-10-PCS; 2023-10-30)
PROC: 5A09357 Assistance with Respiratory Ventilation, Less than 24 Consecutive Hours, Continuous Positive Airway Pressure (ICD-10-PCS; 2023-10-31)
PROC: 5A09357 Assistance with Respiratory Ventilation, Less than 24 Consecutive Hours, Continuous Positive Airway Pressure (ICD-10-PCS; 2023-11-01)
PROC: 0BC18ZZ Extirpation of Matter from Trachea, Via Natural or Artificial Opening Endoscopic (ICD-10-PCS; principal; 2023-11-02)
PROC: 0BC98ZZ Extirpation of Matter from Lingula Bronchus, Via Natural or Artificial Opening Endoscopic (ICD-10-PCS; 2023-11-02)
PROC: 0BC48ZZ Extirpation of Matter from Right Upper Lobe Bronchus, Via Natural or Artificial Opening Endoscopic (ICD-10-PCS; 2023-11-02)
PROC: 0BC88ZZ Extirpation of Matter from Left Upper Lobe Bronchus, Via Natural or Artificial Opening Endoscopic (ICD-10-PCS; 2023-11-02)
PROC: 0BC58ZZ Extirpation of Matter from Right Middle Lobe Bronchus, Via Natural or Artificial Opening Endoscopic (ICD-10-PCS; 2023-11-02)
PROC: 0BC38ZZ Extirpation of Matter from Right Main Bronchus, Via Natural or Artificial Opening Endoscopic (ICD-10-PCS; 2023-11-02)
PROC: 0BC78ZZ Extirpation of Matter from Left Main Bronchus, Via Natural or Artificial Opening Endoscopic (ICD-10-PCS; 2023-11-02)
PROC: 0BC68ZZ Extirpation of Matter from Right Lower Lobe Bronchus, Via Natural or Artificial Opening Endoscopic (ICD-10-PCS; 2023-11-02)
PROC: 0BCB8ZZ Extirpation of Matter from Left Lower Lobe Bronchus, Via Natural or Artificial Opening Endoscopic (ICD-10-PCS; 2023-11-02)
PROC: 5A09357 Assistance with Respiratory Ventilation, Less than 24 Consecutive Hours, Continuous Positive Airway Pressure (ICD-10-PCS; 2023-11-02)
PROC: 5A09357 Assistance with Respiratory Ventilation, Less than 24 Consecutive Hours, Continuous Positive Airway Pressure (ICD-10-PCS; 2023-11-04)
PROC: 5A09357 Assistance with Respiratory Ventilation, Less than 24 Consecutive Hours, Continuous Positive Airway Pressure (ICD-10-PCS; 2023-11-05)
DX: A41.9 Sepsis, unspecified organism (principal); J15.69 Pneumonia due to other Gram-negative bacteria; J96.21 Acute and chronic respiratory failure with hypoxia; J96.22 Acute and chronic respiratory failure with hypercapnia; I50.32 Chronic diastolic (congestive) heart failure; J44.1 Chronic obstructive pulmonary disease with (acute) exacerbation; E87.3 Alkalosis; T17.590A Other foreign object in bronchus causing asphyxiation, initial encounter; J44.0 Chronic obstructive pulmonary disease with (acute) lower respiratory infection; E87.5 Hyperkalemia; I48.91 Unspecified atrial fibrillation; F32.A Depression, unspecified; Z96.641 Presence of right artificial hip joint; D53.9 Nutritional anemia, unspecified; R73.9 Hyperglycemia, unspecified; C14.0 Malignant neoplasm of pharynx, unspecified; J20.9 Acute bronchitis, unspecified; R13.12 Dysphagia, oropharyngeal phase; W44.F9XA Other object of natural or organic material, entering into or through a natural orifice, initial encounter; R91.1 Solitary pulmonary nodule; B95.62 Methicillin resistant Staphylococcus aureus infection as the cause of diseases classified elsewhere; K21.9 Gastro-esophageal reflux disease without esophagitis; I11.0 Hypertensive heart disease with heart failure; G47.33 Obstructive sleep apnea (adult) (pediatric); Z85.89 Personal history of malignant neoplasm of other organs and systems; Z93.0 Tracheostomy status; Z89.422 Acquired absence of other left toe(s); Z85.6 Personal history of leukemia; Y93.89 Activity, other specified; Y92.89 Other specified places as the place of occurrence of the external cause; Y99.8 Other external cause status; Z79.01 Long term (current) use of anticoagulants

== ENCOUNTER → 2024-01-29 | Outpatient (CLI) | payer MEDICARE ==
[~2024-01-29] MED LIST changes: +DILTIAZEM 24HR180 MG PO; +FLONASE ALLERG9.9 ML NAS; +IOHEXOL 300 MG/ML 100 ML VIAL IV ONE; +IOHEXOL 300 MG/ML 100 ML VIAL ONE; +LINEZOLID600 MG PO; +SEPTDS PEG; +TOPROL XL50 M1 PO
== END | disposition home or self-care (01) ==
LOC: CT 01:48
PROVIDERS: ATTEND Internal Medicine Hematology & Oncology
DX: S22.31XA Fracture of one rib, right side, initial encounter for closed fracture (principal); C32.1 Malignant neoplasm of supraglottis; R11.0 Nausea; D50.0 Iron deficiency anemia secondary to blood loss (chronic); I51.7 Cardiomegaly; I25.10 Atherosclerotic heart disease of native coronary artery without angina pectoris; R91.8 Other nonspecific abnormal finding of lung field; Z98.890 Other specified postprocedural states; X58.XXXA Exposure to other specified factors, initial encounter; Y93.89 Activity, other specified; Y92.89 Other specified places as the place of occurrence of the external cause; Y99.8 Other external cause status; J43.9 Emphysema, unspecified

== ENCOUNTER → 2024-04-01 | Outpatient (CLI) | payer MEDICARE ==
[~2024-04-01] MED LIST changes: -IOHEXOL 300 MG/ML 100 ML VIAL IV ONE; -IOHEXOL 300 MG/ML 100 ML VIAL ONE
[2024-04-01 13:22] LABS: BUN 38 mg/dl (9-23); CHLORIDE 93 mmol/L (98-107)
== END | disposition home or self-care (01) ==
LOC: LAB 12:27
PROVIDERS: ATTEND Clinical Nurse Specialist Adult Health
DX: I50.32 Chronic diastolic (congestive) heart failure (principal)

== ENCOUNTER → 2024-05-20 | Outpatient (CLI) | payer MEDICARE ==
[~2024-05-20] MED LIST changes: +BISOPROLOL FUMAR5 MG PO; +CEPHALEXIN500 M1 PO; +DIGOXIN125 MCG PO; +LEVETIRACETAM500 MG PO; +ZYVOX600 MG PO
== END | disposition home or self-care (01) ==
LOC: RAD 13:46
PROVIDERS: ATTEND Internal Medicine Critical Care Medicine
DX: J90 Pleural effusion, not elsewhere classified (principal); R91.8 Other nonspecific abnormal finding of lung field; J44.9 Chronic obstructive pulmonary disease, unspecified; G47.33 Obstructive sleep apnea (adult) (pediatric); J96.11 Chronic respiratory failure with hypoxia; J96.12 Chronic respiratory failure with hypercapnia; I11.0 Hypertensive heart disease with heart failure; I50.9 Heart failure, unspecified; Z99.81 Dependence on supplemental oxygen; Z93.0 Tracheostomy status; Z85.21 Personal history of malignant neoplasm of larynx; Z91.198 Patient's noncompliance with other medical treatment and regimen for other reason

== ENCOUNTER → 2024-05-27 | Outpatient (CLI) | payer MEDICARE ==
[~2024-05-27] MED LIST changes: +GADOTERATE MEGLUMINE 7.5 MMOL/15 ML VIAL IV ONE
== END | disposition home or self-care (01) ==
LOC: MRI 02:42
PROVIDERS: ATTEND Neurological Surgery
DX: C79.31 Secondary malignant neoplasm of brain (principal)

== ENCOUNTER → 2024-07-16 | Outpatient (CLI) | payer MEDICARE ==
[~2024-07-16] MED LIST changes: -GADOTERATE MEGLUMINE 7.5 MMOL/15 ML VIAL IV ONE; +IOHEXOL 300 MG/ML 100 ML VIAL IV ONE; +IOHEXOL 300 MG/ML 100 ML VIAL ONE
== END | disposition home or self-care (01) ==
LOC: CT 00:31 → RESCLI 00:31 → CT 10:00
PROVIDERS: ATTEND Internal Medicine Hematology & Oncology
DX: I48.91 Unspecified atrial fibrillation (principal); J44.1 Chronic obstructive pulmonary disease with (acute) exacerbation; I50.32 Chronic diastolic (congestive) heart failure; J44.9 Chronic obstructive pulmonary disease, unspecified; C79.31 Secondary malignant neoplasm of brain; C14.0 Malignant neoplasm of pharynx, unspecified; K21.9 Gastro-esophageal reflux disease without esophagitis; G47.33 Obstructive sleep apnea (adult) (pediatric); Z93.6 Other artificial openings of urinary tract status; Z79.899 Other long term (current) drug therapy; Z98.890 Other specified postprocedural states; Z88.8 Allergy status to other drugs, medicaments and biological substances

== ENCOUNTER 2024-07-24 10:27 | Observation (INO) | payer MEDICARE ==
[~2024-07-24] VITALS: Wt 77.6 kg
[~2024-07-24 10:27] MED LIST changes: -IOHEXOL 300 MG/ML 100 ML VIAL IV ONE; -IOHEXOL 300 MG/ML 100 ML VIAL ONE
[2024-07-24 10:33] VITALS: BP 141/65
[2024-07-24] MEDS ORDERED: Albuterol Sulf/Ipratropium 3 ML VIAL NEB ONE (10:35)
[2024-07-24] MEDS ORDERED: methylPREDNISolone sod succ 125 MG VIAL IV ONE (10:35)
[2024-07-24] MEDS ORDERED: OXYCODONE-ACET1 EAC3 PO (11:10)
[2024-07-24] MEDS ORDERED: METHOCARBAMOL750 M1 PO (11:11)
[2024-07-24] MEDS ORDERED: VENTOLIN 02.5 MG/3 M INH (11:12)
[2024-07-24 11:57] LABS: BASO # 0.1 10*3/uL (0.0-0.1); BASO % 0.6 % (0.0-1.0); EOS # 0.4 10*3/uL (0.0-0.4); EOS % 3.6 % (1.0-4.0); HEMATOCRIT 33.8 % (42.0-52.0); MEAN CELL VOLUME 106.3 fl (80.0-94.0); MEAN CORPUSCULAR HGB 30.5 pg (27.0-31.0); MEAN CORPUSCULAR HGB CONC 28.7 g/dl (33.0-37.0); MEAN PLATELET VOLUME 9.9 fl (9.6-12.3); MONO # 1.1 10*3/uL (0.1-1.0); NEUT # 7.9 10*3/uL (2.3-7.9); PLATELET COUNT AUTOMATED 202 10*3/uL (130-400); RED BLOOD COUNT 3.18 10*6/uL (4.50-5.90); RED CELL DISTRI WIDTH 15.2 % (0-14.5)
[2024-07-24 12:52] VITALS: BP 131/62
[2024-07-24 13:24] LABS: ALKALINE PHOSPHATASE 91 U/L (46-116); BUN 56 mg/dl (9-23); CHLORIDE 102 mmol/L (98-107); TOTAL PROTEIN 7.4 gm/dL (6.0-8.0)
[2024-07-24 13:29] LABS: SGPT/ALT < 7 U/L (5-49)
[2024-07-24 13:30] LABS: POTASSIUM 6.5 mmol/L (3.4-5.1)
[2024-07-24] MEDS ORDERED: AZITHROMYCIN 250 ML IV ONE (13:45)
[2024-07-24] MEDS ORDERED: cefTRIAXone Sodium 1 GM/10 ML SYR IV ONE (13:45)
[2024-07-24] MEDS ORDERED: Acetaminophen/Oxycodone 5 MG/325 MG TABLET PO ONE ×2 (13:45→20:50)
[2024-07-24] MEDS ORDERED: DEXTROSE 50% 25 GM/50 ML SYR IV ONE (13:50)
[2024-07-24] MEDS ORDERED: INSULIN REGULAR, HUMAN 1 UNIT/0.01 ML IV ONE (13:50)
[2024-07-24] MEDS ORDERED: FUROSEMIDE 40 MG/4 ML VIAL IV ONE (13:50)
[2024-07-24] MEDS ORDERED: Albuterol Sulfate 2.5 MG/3 ML VIAL NEB ONE (13:50)
[2024-07-24 15:33] VITALS: BP 108/54
[2024-07-24 17:18] VITALS: BP 103/50
[2024-07-24 19:02] VITALS: BP 115/66
[2024-07-24 20:23] VITALS: BP 134/69
[2024-07-24] MEDS ORDERED: BISACODYL 10 MG SUPP R PRN (23:20)
[2024-07-24] MEDS ORDERED: ACETAMINOPHEN 325 MG TAB PO PRN (23:20)
[2024-07-24] MEDS ORDERED: Ondansetron Hydrochloride 4 MG/2 ML VIAL IV PRN (23:20)
[2024-07-24] MEDS ORDERED: BISACODYL 5 MG TAB PO PRN (23:20)
[2024-07-24] MEDS ORDERED: ACETAMINOPHEN 650 MG SUPP R PRN (23:20)
[2024-07-25] MEDS ORDERED: cefTRIAXone Sodium 1 GM in SYRINGE INFUSION 10 ML IV SCH (00:10)
[2024-07-25] MEDS ORDERED: Albuterol Sulf/Ipratropium 3 ML VIAL NEB SCH (00:10)
[2024-07-25 00:39] LABS: POTASSIUM 5.4 mmol/L (3.4-5.1)
[2024-07-25] MEDS ORDERED: Pantoprazole Sodium 40 MG TAB PO SCH (06:00)
[2024-07-25] MEDS ORDERED: HEPARIN SODIUM 5,000 UNIT/ML VIAL SC SCH (10:00)
[2024-07-25] MEDS ORDERED: DIGOXIN 125 MCG TAB PO SCH (10:00)
[2024-07-25] MEDS ORDERED: BISOPROLOL FUMARATE 5 MG TAB PO SCH (10:00)
[2024-07-25] MEDS ORDERED: methylPREDNISolone sod succ 40 MG VIAL IV SCH (10:00)
[2024-07-25] MEDS ORDERED: dilTIAZem CD 180 MG CAP PO SCH (10:00)
[2024-07-25] MEDS ORDERED: APIXABAN 5 MG TAB PO SCH (10:00)
[2024-07-25] MEDS ORDERED: AZITHROMYCIN 250 ML IV SCH (10:00)
[2024-07-25] MEDS ORDERED: LEVETIRACETAM 500 MG TAB PO SCH (10:00)
== END 2024-07-25 01:55 | disposition short-term general hospital (02) ==
LOC: ED 10:27 → EDHOLD 23:07
PROVIDERS: Internal Medicine; ADMIT Internal Medicine; ATTEND Internal Medicine
DX: J96.02 Acute respiratory failure with hypercapnia (principal); J44.1 Chronic obstructive pulmonary disease with (acute) exacerbation; J18.9 Pneumonia, unspecified organism; Z90.89 Acquired absence of other organs; Z87.891 Personal history of nicotine dependence; Z79.899 Other long term (current) drug therapy; Z91.018 Allergy to other foods